=== PATIENT | female | born 1965 | race Caucasian/White ===

== ENCOUNTER 2023-03-25 12:02 | Emergency (ER) | payer BC, SELFPAY ==
[2023-03-25 12:20] VITALS: BP 172/91; PULSE 64; RESP 18; TEMP 36.4; O2SAT 100; BMI 30.3
--- NOTE | 2023-03-25 12:37 | ED.CHESTPAIN ---
HPI - Chest Pain General Chief Complaint: Chest Pain Stated Complaint: Chest pain, shortness of breath Time Seen by Provider: 03/25/23 12:10 History of Present Illness HPI narrative: This 58-year-old female comes in reporting chest discomfort in the midsternal area. She states that this began 2 days ago and is reproducible when bending forward and when taking a deep breath. 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 She denies having any nausea, vomiting, lightheadedness, shortness of breath, diaphoresis, or exercise intolerance. She does not know of any prior heart condition. She states that she did have a stroke 6 years ago and is not taking any medicine to manage that condition. Related Data Home Medications Medication Instructions Recorded Confirmed dupilumab 200 mg/1.14 mL mg subcut 03/25/23 subcutaneous pen injector ([email or web address]) gabapentin 300 mg capsule 600 mg PO BID 03/25/23 03/25/23 lisinopril 20 mg tablet 20 mg PO DAILY 03/25/23 03/25/23 Allergies Allergy/AdvReac Type Severity Reaction Status Date / Time No Known Drug Allergies Allergy Verified 03/25/23 12:20 Review of Systems Status of ROS Reports: 10 or more systems reviewed and unremarkable except as noted in History and below Narrative Constitutional: No fevers, no weight gain or loss. Eyes: No discharge. No vision changes. HENT: No congestion, no sore throat, no ear pain. Cardiovascular: No palpitations. Respiratory: No shortness of breath, no wheezes, no cough. Gastrointestinal: No abdominal pain, no vomiting, no diarrhea. Genitourinary: No dysuria, no hematuria. Musculoskeletal: Normal range of motion. Skin: No rashes, no pruritis. Neurological: No dizziness, weakness, sensory change, speech change. Endo/Heme/Allergies: No bruising or bleeding. No polydipsia. Pysch: no suicidality, no anxiety, no insomnia. All other systems reviewed and are negative. [facility] Social History Smoking Status: Never smoker Do you use any of these nicotine containing products: None How often do you have a drink containing alcohol: 2-3 times a week How many standard drinks containing alcohol do you have on a typical day: 1 or 2 How often do you have six or more drinks on one occasion: Never AUDIT-C Alcohol total score: 3 Non-prescribed substance use: denies use service: Yes Exam Narrative Exam Narrative: Constitutional: Well-developed, well-nourished, no acute distress. HEENT: Normocephalic, atraumatic. Neck: Normal range of motion. Nontender. Supple. Heart: Regular. No murmurs. Normal rate. Intact distal pulses. Lungs: Clear to auscultation. No wheezes, rhonchi, or rales. Chest: No pain when palpating along the sternal border. Distinct pain is reproduced when bending forward or taking a deep breath. Abdomen: Normal bowel sounds. Nontender. No rebound tenderness. Genitalia: Deferred. Back: No midline tenderness. Normal range of motion. Extremities: Normal range of motion. No injury. Skin: Intact. No rash. Warm. No erythema or pallor. Neurologic: No altered sensation. No weakness. Alert and oriented. Psychiatric: No suicidality. No anxiety or depression. No insomnia. Nursing notes and vitals signs are reviewed. Const Vital Signs, click to edit/add: Vital Signs - 24 hr 03/25/23 12:20 Temperature 97.6 F Pulse Rate [Right Pulse Oximeter] 64 Respiratory Rate 18 Blood Pressure [Right Upper Arm] 172/91 H Pulse Oximetry 100 Oxygen Delivery Method Room Air Course Vital Signs Vital signs: Initial Vital Signs Temperature 97.6 F 03/25/23 12:20 Temperature Source Temporal Artery Scan 03/25/23 12:20 Pulse Rate 64 03/25/23 12:20 Respiratory Rate 18 03/25/23 12:20 Blood Pressure 172/91 H 03/25/23 12:20 Blood Pressure Mean 118 H 03/25/23 12:20 Blood Pressure Position Sitting 03/25/23 12:20 Pulse Oximetry 100 03/25/23 12:20 Oxygen Delivery Method Room Air 03/25/23 12:20 Vital Signs Temperature 97.6 F 03/25/23 12:20 Pulse Rate 64 03/25/23 12:20 Respiratory Rate 18 03/25/23 12:20 Blood Pressure 172/91 H 03/25/23 12:20 Pulse Oximetry 100 03/25/23 12:20 Oxygen Delivery Method Room Air 03/25/23 12:20 Temperature 97.6 F 03/25/23 12:20 Pulse Rate 64 03/25/23 12:20 Respiratory Rate 18 03/25/23 12:20 Blood Pressure 172/91 H 03/25/23 12:20 Pulse Oximetry 100 03/25/23 12:20 Oxygen Delivery Method Room Air 03/25/23 12:20 MDM - Chest Pain MDM Narrative Medical decision making narrative: This 58-year-old female comes in reporting pain in her mid sternal area that is reproducible with certain movements and with taking a deep breath. She does not describe any particular injury event but does state that she has been lifting heavy items [place] EKG shows normal sinus rhythm without any ST or T-wave abnormalities. Her troponin returns at 0. Other lab results are also in normal range. This patient's pain is most likely musculoskeletal. I advised activity as tolerated. I did provide a return to work note. Lab Data Labs: Lab Results 03/25/23 03/25/23 Range/Units 12:36 13:00 WBC 4.83 (4.50-11.00) K/uL RBC 3.95 L (4.00-5.20) m/uL Hgb 12.2 (12.0-16.0) gm/dL Hct 36.9 (33.0-51.0) % MCV 93 (80-100) fL MCH 31 (26-34) pg MCHC 33 (32-36) gm/dL RDW Coeff of Filomena 12.1 (11.5-15.5) % Plt Count 185 (140-440) K/uL Neut % (Auto) 49.7 (42.0-72.0) % Lymph % (Auto) 36.6 (20-44) % [place] % (Auto) 8.7 (0.0-11.0) % Eos % (Auto) 4.8 (0.0-7.0) % Baso % (Auto) 0.2 (0.0-3.0) % Neut # (Auto) 2.40 (1.7-7.0) K/uL Lymph # (Auto) 1.77 (0.90-2.90) K/uL [place] # (Auto) 0.40 (0.00-0.90) K/UL Eos # (Auto) 0.23 (0.00-0.50) K/uL Baso # (Auto) 0.01 (0.00-0.30) K/uL Abs Immat Gran (auto) 0.00 (0.00-0.30) K/uL Imm/Tot Granulo (auto) 0.0 % Sodium 139 (135-149) mmol/L Potassium 3.6 (3.6-5.1) mmol/L Chloride 104 (96-114) mmol/L Carbon Dioxide 29 (20-32) mmol/L BUN 14 (7-30) mg/dL Creatinine 0.7 (0.5-1.5) mg/dL Estimated Creat Clear 93.78 Estimated GFR 101 ml/min Glucose 87 (60-115) mg/dL Calcium 8.9 (8.4-10.6) mg/dL POC Troponin I 0.00 L (0.01-0.04) ng/ml ECG Data Attestation: I personally reviewed and interpreted this ECG as follows: Interpretation: Normal sinus rhythm. Rate is 71 beats per minute. There are no ST or T-wave abnormalities. Discharge Plan Discharge Clinical Impression: Acute chest wall pain Patient Disposition: Home, Self-Care Condition: Stable Additional Instructions: Use [id number] medicines as needed or directed. Follow up with MD or return if worsening. Prescriptions: No Action lisinopril 20 mg tablet 20 mg PO DAILY gabapentin 300 mg capsule 600 mg PO BID Dupixent Pen 200 mg/1.14 mL pen injector SUBCUT Patient Comments: [NO ORIGINAL SIG] Follow Up/Referrals: Fide Choudhary PA-C [Primary Care Provider] - Stand Alone Forms: [employer] Info Instructions
[2023-03-25 13:18] LABS: Basophils Absolute Auto 0.01 K/uL (0.00-0.30); Basophils Percent Auto 0.2 % (0.0-3.0); Eosinophils Absolute Auto 0.23 K/uL (0.00-0.50); Eosinophils Percent Auto 4.8 % (0.0-7.0); Hematocrit 36.9 % (33.0-51.0); Hemoglobin* 12.2 gm/dL (12.0-16.0); Lymphocytes Absolute Auto 1.77 K/uL (0.90-2.90); Lymphocytes Percent Auto 36.6 % (20-44); Mean Corpuscular HGB Conc 33 gm/dL (32-36); Mean Corpuscular Hemoglobin 31 pg (26-34); Mean Corpuscular Volume 93 fL (80-100); Monocytes Percent Auto 8.7 % (0.0-11.0); Neutrophils Percent Auto 49.7 % (42.0-72.0); Platelet Count* 185 K/uL (140-440); RDW Coefficient of Variation % 12.1 % (11.5-15.5); Red Blood Count 3.95 m/uL (4.00-5.20); White Blood Count* 4.83 K/uL (4.50-11.00)
[2023-03-25 13:23] LABS: Slide Review Reflex No
[2023-03-25 13:32] LABS: Chloride* 104 mmol/L (96-114); Potassium* 3.6 mmol/L (3.6-5.1); Sodium* 139 mmol/L (135-149)
[2023-03-25 13:35] LABS: Blood Urea Nitrogen* 14 mg/dL (7-30); Carbon Dioxide* 29 mmol/L (20-32); Creatinine* 0.7 mg/dL (0.5-1.5); Est. Creatinine Clearance* 93.78; Estimated Glomerular Filt Rate 101 ml/min
[2023-03-25 13:36] LABS: Calcium* 8.9 mg/dL (8.4-10.6); Glucose* 87 mg/dL (60-115)
== END 2023-03-25 14:08 | disposition home or self-care (01) ==
PROVIDERS: Emergency Provider Emergency Medicine Emergency Medical Services; PCP Physician Assistant Medical
DX: R07.89 Other chest pain (principal)
CPT/HCPCS: 36415; 80048; 84484; 85025; 93005; 99284

== ENCOUNTER 2024-06-26 07:22 | Outpatient (CLI) | payer BC, SELFPAY ==
--- OUTSIDE RECORDS SUMMARY | 2024-06-26 07:25 | XMS_ITS | Continuity of Care Document ---
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 Social History Type Response Date Comment Sourc e This section is an empty social history section. [facility]
--- OUTSIDE RECORDS SUMMARY | 2024-06-26 07:25 | XMS_ITS | Clinical Summary ---
Author Organization [employer] [facility] [employer] Address [place], [place] [address] Care Team Providers Care Wood Gluer Name Role Phone Fide Choudhary Primary Care Provider Allergies Active Allergy Reactions Criticality Noted Date Comments Amoxicillin-Pot Clavulanate Rash 07/16/2021 7Nov21 Rash after augmentin, similar to chronic rash however Hymenoptera Allergenic Extract Anaphylaxis High 11/28/2007 Black Raspberry Flavor Throat Swelling/Closing High 01/24/2023 Fruit and flavoring Kiwi Throat Swelling/Closing High 06/05/2023 throat swelling, foot went numb Nsaids (Non-Steroidal Anti-Inflammatory Drug) Other - Describe In Comment Field 03/28/2016 Patient had bariatric surgery. Should not ever take NSAIDS due to high risk for gastric ulcers. Venom-Wasp Anaphylaxis High 01/28/2023 Medications Medication Sig Dispensed Refills Start Date End Date Status multivitamin (MVI) tabletIndications:S tatus post bariatric surgery Take 1 tablet by mouth once daily. [place]inestones BID 0 7 Active cyclobenzaprine (FLEXERIL) 10 mg tabletIndications:M uscle spasm Take 1 Tablet (10 mg) by mouth 2 times daily if needed for Muscle Spasm. 30 Tablet 1 Active albuterol HFA (ProAir HFA) 90 mcg/actuation inhalerIndications: Cough Inhale 1-2 Puffs by mouth every 6 hours if needed for Shortness of Breath 1st choice. 1 Each 2 Active omeprazole (PRILOSEC) 40 mg Delayed-Release capsuleIndications: Gastroesophageal reflux disease, unspecified whether esophagitis present TAKE ONE CAPSULE BY MOUTH ONE TIME DAILY BEFORE MEALS 90 Capsule 1 2 Active SUMAtriptan (IMITREX) 100 mg tablet take 0.5 - 1 tablet by mouth at onset of headache. may repeat in 2 hours as needed. Max of 2 tablets per 24 hours. Max of 9 days per 30 day 3 Active gabapentin (NEURONTIN) 300 mg capsule Take 600 mg by mouth two times daily. 3 Active clobetasol 0.05% TOPICAL (TEMOVATE) 0.05 % external solutionIndications :Atopic dermatitis, unspecified type Apply 1-2 times daily as needed for itching and rash. May use 1-2 times weekly for maintenance. Use sparingly. Do not use on face, axilla and groin. 50 mL 1 3 Active zolpidem (AMBIEN) 10 mg tabletIndications:I nsomnia, unspecified type Take 1 Tablet (10 mg) by mouth at bedtime if needed for Sleep. 30 Tablet 4 Active trimethoprim-polymy christoph b (POLYTRIM) ophthalmic solutionIndications :Conjunctivitis of left eye, unspecified conjunctivitis type Place 1 Drop into left eye every 4 hours. 10 mL 4 Active EPINEPHrine (EpiPen) 0.3 mg/0.3 mL auto-injectorIndica tions:Bee sting allergy Inject 0.3 mg (1 Pen) intramuscular each time if needed for Allergic Reaction. 2 Each 3 4 Active clobetasol 0.05% TOPICAL (TEMOVATE) 0.05 % external solutionIndications :Atopic dermatitis, unspecified type Apply a thin layer to the affected areas on the trunk and extremities once to twice daily as needed. ( Patient to mix in a 16 ounce jar of CeraVe cream) 50 mL 1 4 Active dupilumab (Dupixent Pen) 300 mg/2 mL subcutaneous PENIndications:Atop ic dermatitis, unspecified type Inject 300mg ( 1 pen ) every 2 weeks 4 mL 11 4 Active polyethylene glycol-electrolyte (GOLYTELY) 236-22.74-6.74 -5.86 gram suspensionIndicatio ns:Screening for colon cancer Drink 2 liters the day before the procedure and 2 liters 6 hours prior to procedure. 4000 mL 4 Active lisinopriL (PRINIVIL; ZESTRIL) 20 mg tabletIndications:H TN (hypertension) Take 1 Tablet (20 mg) by mouth once daily. 90 Tablet 3 4 Active clobetasol 0.05% TOPICAL (TEMOVATE) 0.05 % external solutionIndications :Atopic dermatitis, unspecified type Apply a thin layer to the affected areas on the trunk and extremities once to twice daily as needed 50 mL 1 3 06/04/20 24 Discontinu ed(Reorder (E-cancel not sent)) meloxicam 15 mg tabletIndications:C ostochondral chest pain Take 1 Tablet (15 mg) by mouth once daily. 30 Tablet 3 06/17/20 Discontinu ed(*Patien t states no longer taking) lisinopriL (PRINIVIL; ZESTRIL) 10 mg tabletIndications:H ypertension, unspecified type Take 1 Tablet (10 mg) by mouth once daily. 90 Tablet 3 4 06/17/20 Discontinu ed(*Medica tion adjustment ) oxyCODONE (ROXICODONE) 5 mg immediate release tabletIndications:B union, right Take 1-2 Tablets (5-10 mg) by mouth every 4 hours if needed for Pain. 20 Tablet 4 06/17/20 Discontinu ed(*Patien t states no longer taking) codeine-guaiFENesin 10-100 mg/5 mL liquidIndications:A cute cough Take 5 mL by mouth at bedtime if needed for Cough. Max dose 60 mL per 24 hrs. 60 mL 4 06/17/20 Discontinu ed(*Patien t states no longer taking) benzonatate (TESSALON) 100 mg capsuleIndications: Cough, unspecified type Take 1 Capsule (100 mg) by mouth 3 times daily if needed for Cough. 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 Seasonal allergies 07/03/2010 Unspecified essential hypertension 07/15/2007 Unspecified asthma(493.90) 10/07/2006 Overview (06/11/2011): triggors-cold weather/ Asthma letter 06/11/11 Esophageal reflux 10/07/2006 Dysphagia Encounters Date Type Department Care Team Description 06/24/2024 9:40 AM CDT Ancillary Procedure [facility] [address] [place] [address] Arrived 06/24/2024 Travel 06/21/2024 Travel 06/17/2024 7:30 AM CDT Office Visit [facility] [address] [place] [address] Fide Choudhary PA Preoperative Exam (colonoscopy); Musculoskeletal Problem (L hip - go over MRI results and next steps); Form (Needs note for work) 06/17/2024 Travel 06/15/2024 2:45 PM CDT Nurse/Clinic Staff Only [facility] [address] [place] [address] Immunization/Injection (ALLERGY INJECTIONS ) 06/15/2024 Travel 06/08/2024 Telephone [facility] [address] [facility] [place] [address] Fide Choudhary PA Screening 06/04/2024 2:45 PM CDT Nurse/Clinic Staff Only [facility] [address] [facility] [facility] [address] Immunization/Injection (ALLERGY INJECTIONS ) 06/04/2024 11:30 AM CDT Office Visit [facility] [address] [place] [address] [place] [address] Victoria Quan PA Derm Problem (recheck rash ) 06/04/2024 Travel 06/01/2024 1:15 PM CDT Nurse/Clinic Staff Only [facility] [address] [facility] [address] Immunization/Injection (ALLERGY INJECTIONS ) 06/01/2024 Travel 05/20/2024 Telephone [facility] [address] [facility] [facility] [address] Thierno Tavares MD Prior Authorization (EPINEPHrine (EpiPen) 0.3 mg/0.3 mL auto-injector - PA NOT NEEDED ) 05/18/2024 2:20 PM CDT Office Visit [facility] [address] [facility] [facility] [address] Thierno Tavares MD Follow Up (immunotherapy) 05/18/2024 Travel 05/07/2024 4:15 PM CDT Ancillary Procedure [facility] [address] [facility] [address] 05/07/2024 Travel 05/06/2024 Orders Only [facility] [address] [address] Thierno aTvares MD Refill Request (Venom immunotherapy mix) 04/22/2024 10:45 AM CDT Office Visit [facility] [address] [facility] [address] Salinas Guerra DPM Post-op (Right 10 week post-op , DOS 12/30/23) 04/22/2024 Travel 04/22/2024 Refill [facility] [address] [place] [address] Victoria Quan PA Refill Request (Dupixent Pen) 04/15/2024 10:30 AM CDT Ancillary Procedure [facility] [address] [place] [address] 04/15/2024 9:30 AM CDT Office Visit [facility] [address] [place] [address] Fide Choudhary PA Hip Pain/problem (L hip pain on and off x a few years, but last month its been constant pain. ); Eye Problem (L eye is red and painful. Woke up this morning this way) 04/15/2024 Travel 04/09/2024 3:15 PM CDT Nurse/Clinic Staff Only [facility] [address] [place] [address] Immunization/Injection (ALLERGY INJECTIONS ) 04/09/2024 Telephone [facility] [address] [place] [address] Thierno Tavares MD Refill Request 04/09/2024 Travel from Last 3 Months Immunizations Name Administration Dates Next Due AMB Influenza, IIV4 PF (=>6 mos Flulaval,Fluzone Fluarix)(Flu Clinic Only) 06/01/2020 HepA-HepB (Twinrix) 07/20/2015 Inactivated Polio Vaccine 07/20/2015 Influenza A (H1N1), Inactivated 08/29/2009 Influenza A (H1N1), Inactiva yoselin (Age >=3 Years) 08/29/2009 Influenza, IIV3 (Age 6-35 mos) 06/11/2011 Influenza, IIV3 (Age >=3 years) 06/11/20 11,07/03/2010,06/30/2008,07/16 MENINGOCOCCAL VACCINE 2 VIAL 2MO-55YO (MENVEO) 07/20/2015 Td (Age >=7 Years) 09/09/2004 Td, Preservative Free (age >= 7 Years) 6 Tdap 06/11/2011 Tuberculin (PPD) 07/03/2010 Family History * Patient is adopted Medical History Relation Name Comments Unknown Father Cancer-colon Maternal Grandmother d, age 39 Cancer-colon Mother , age 4 5 Dementia Mother Cancer-breast No Family History Relation Name Status Comments Father Maternal Grandmother Mother Social History Tobacco Use Types Packs/Day Years Used Date Smoking Tobacco: Never Smokeless Tobacco: Never Tobacco Cessation:Counseling Given: Yes Alcohol Use Standard Drinks/Week Comments Yes 0 (1 standard drink = 0.6 oz pur e alcohol) PHQ-2 Answer Date Recorded PHQ-2 TOTAL SCORE 0 10/22/2022 Social Connections Answer Date Recorded Frequency of Communication with Friends and Fami ly 0 12/18/2023 Financial Resource Strain Answer Date R ecorded Difficulty of Paying Living Expenses 3 12/18/2023 Difficulty of Paying Living Expenses Not on file 12/18/2023 Food Insecurity Answer Date Recorded Worried About Running Out of Food in the Last Ye ar 1 12/18/2023 Transportation Needs Answer Date Record ed Lack of Transportation (Medical) 1 12/18/2023 Housing Stability Answer Date Recorded Unable to Pay for Housing in the Last Year 1 12/18/2023 Sex and Gender Information Value Date Recorded Sex Assigned at Female 12/27/2022 10:22 AM CDT Gender Identity Female 12/27/2022 10:22 AM CDT Sexual Orientation Not on file Travel History Travel Start Travel End [place] 05/28/2024 05/31/2024 Obstetrics History Para Term AB IAB SAB Ectopic Multiple Livin g Live Births 1 1 Date Outcome GA Total Labor Labor/2nd/3rd Weight Sex Type Anes PTL Chetna A1 A5 Name Clin Para Last Filed Vital Signs Vital Sign Reading Time Taken Comments Blood Pressure 126/78 06/17/2024 7:28 AM CDT Pulse 68 06/17/2024 7:28 AM CDT Temperature 36.8 ??C (98.2 ??F) 03/03/2024 4:04 PM CD T Respiratory Rate 16 12/30/2023 1:15 PM CDT Oxygen Saturation 100% 05/18/2024 2:12 PM CDT Inhaled Oxygen Concentration - - Weight 91.6 kg (202 lb) 06/17/2024 7:28 AM CDT Height 177.8 cm (5' 10) 12/30/2023 9:54 AM CDT Body Mass Index 28.98 12/30/2023 9:54 AM CDT Plan of Treatment Upcoming Encounters Date Type Department Care Team (Late st Contact Info) Description 06/26/2024 7:45 AM CDT Office Visit [facility] [address] [place] [address] Juvenal Hazel MD [address] [place] [address] 08/03/2024 3:15 PM [employer] Nurse/Clinic Staff Only [facility] [address] [place] [address] 10/22/2024 9:30 AM [employer] Office Visit [facility] [address] [place], [place] [address] Victoria Quan PA [address] [place], [place] [address] [phone] 06/10/2025 9:30 AM CDT Office Visit [facility] [address] [place] [address] Victoria Quan PA [address] [place], [place] [id number] [phone] Health Maintenance Due Date Last Done Comments COVID-19 vaccine series (#1) 1972 HIV for age 15-65 1982 Hepatitis C screening for age 18-79 1985 Zoster (shingles) series for age 50+ (1 of 2) 1986 Tetanus booster 06/11/2021 06/11/2011, 10/10, 09/09/2004 Depression screening for age 12+ 10/22/2023 10/22/2022, 04/08/2020, 04/06/2020, Additional history exists Colonoscopy through age 75 11/03/202311/03, 11/03/2018, 11/03/2018, Additional history exists Mammogram for age 45-75 02/01/2024 02/01/20 23, 11/09/2020, 10/21/2019, Additional history exists Influenza for age 50-64 05/10/2024 06/01/20, 06/11/2011, 07/03/2010, Additional history exists BMI (ht and wt on same day) for age 18+ 12/17/2024 12/18/2023, 03/28/2023, 02/12/2023, Additional history exists Lipids for age 45-75 11/08/2026 11/08/2021, 03/20/2017, 11/26/2012, Additional history exists Tdap Completed 06/11/2011 Pneumococcal series for age 6-64 Aged Out No longer eligible based on patient's age to complete this topic Medical Devices Implanted Type Area Supervisor Corduroy Cutting Device Identifier Shelf Expiration Date Model / Serial / Lot Maxforce Mtp Compression Plate, Petite - [id number] Implanted:Qty: 1 on 12/30/2023 by Salinas Guerra DPM at [facility] Right: Foot [employer] AR-9944P-[id number] / / [id number] Screw Bone 3.0x28mm Compression Headless - [id number] Implanted:Qty: 1 on 12/30/2023 by Salinas Guerra DPM at [facility] Right: Foot [employer] AR-8630-28 / / [id number] Screw Bone 3x16mm Johnie Low Profile Mtp - [id number] Implanted:Qty: 1 on 12/30/2023 by Salinas Guerra DPM at [facility] Right: Foot [employer] AR-9933-16 / / [id number] Screw Bone 3.0x14mm Titnm Shantal Compression Kreulock - [id number] Implanted:Qty: 1 on 12/30/2023 by Salinas Guerra DPM at [facility] Right: Foot [employer] AR-8933VCL- 14 / / [id number] Screw Bone 3.0x16mm Titnm Shantal Compression Kreulock - [id number] Implanted:Qty: 1 on 12/30/2023 by Salinas Guerra DPM at [facility] Right: Foot [employer] AR-8933VCL- 16 / / [id number] Screw Bone 3.0x18mm Titnm Shantal Compression Kreulrivera - [id number] Implanted:Qty: 2 on 12/30/2023 by Salinas Guerra DPM at [facility] Right: Foot [employer] AR-8933VCL- 18 / / Explanted Type Area Supervisor Corduroy Cutting Device Identifier Shelf Expiration Date Model / Serial / Lot Guidewire [id number] - [id number] Explanted:Qty: 1 on 12/30/2023 by Salinas Guerra DPM at [facility] [employer] AR-[id number]- 30 / / [id number] Procedures Procedure Name Priority Date/Time Associated Diagnosis Comments HEMOGLOBIN Routine 06/17/2024 7:59 AM CDT Preop general physical exam BASIC METABOLIC PANEL Routine 06/17/2024 7:59 AM CDT HTN (hypertension) MR HIP LEFT WO Routine 05/07/2024 4:44 PM CDT Hip pain, left XR HIP 1 VIEW W PELVIS LEFT Routine 04/15/2024 10:21 AM CDT Hip pain, left XR MAMMO AURELIA BILAT SCREEN Routine 01/31/2023 3:48 PM CDT Visit for screening mammogram LIPID PANEL W REFLEX MEASURED LDL Routine 11/08/2021 11:27 AM [employer] Screening cholesterol level COLONOSCOPY SCREENING Routine 11/03/2018 12:00 PM [employer] History of colon polyps from Last 3 Months or Most Recently Relevant to Health Maintenance Results * HEMOGLOBIN (06/17/2024 7:59 AM CDT) HEMOGLOBIN 13.2 11.7 - 15.5 g/dL [facility] Blood BLOOD SPECIMEN / Unknown 06/17/2024 7:59 AM CDT 06/17/2024 8:00 AM CDT Fide SALAS HEMATOLOGY [facility] [address] [place] [address], [place] [phone] [facility] [address] [place] [address] * (ABNORMAL) BASIC METABOLIC PANEL (06/17/2024 7:59 AM CDT) [facility] GLUCOSE 93 65 - 99 mg/dL [facility] Comment: ? Fasting reference interval UREA NITROGEN (BUN) 15 7 - 25 mg/dL [facility] CREATININE 0.87 0.50 - 1.03 mg/dL [facility] EGFR 78 > OR = 60 mL/min/1. 73m2 [facility] BUN/CREATININE RATIO SEE NOTE: 6 - 22 (calc) [facility] Comment: ?? Not Reported: BUN and Creatinine are within ?? reference range. ? SODIUM 140 135 - 146 mmol/L [facility] POTASSIUM 4.5 3.5 - 5.3 mmol/L [facility] CHLORIDE 106 98 - 110 mmol/L [facility] CARBON DIOXIDE 29 20 - 32 mmol/L [facility] ELECTROLYTE BALANCE 5(L) 7 - 17 mmol/L (calc) [facility] CALCIUM 9.2 8.6 - 10.4 mg/dL [facility] Blood BLOOD SPECIMEN / Unknown 06/17/2024 7:59 AM CDT 06/17/2024 8:00 AM CDT Fide SALAS CHEMISTRY Performing Organization Address City/[facility]/ZIP Co de Phone Number [facility] [address] [place] [address], [place] [phone] [facility] [address] [place] [address] * MR HIP LEFT WO CONTRAST (05/07/2024 4:44 PM CDT) Anatomical Region Laterality Modality HIPL Magnetic Resonan ce 05/08/2024 11:2 0 AM CDT Impressions 05/08/2024 11:20 AM CDT 1. Mild acetabular over coverage left hip. Possible anterosuperior labral tear. Dictated by Jon Ross MD @ 05/08/2024 11:20:24 AM (Electronically Signed) Narrative 05/08/2024 11:20 AM CDT For Patients: ??As a result of the Cures Act, medical imaging exams and procedure reports are released immediately into your electronic medical record. ??You may view this report before your referring provider. ??If you have questions, please contact your health care provider. EXAM: MRI OF THE LEFT HIP, WITHOUT CONTRAST CLINICAL INDICATION: Hip pain. PRIOR SURGERY: None. COMPARISON PLAIN FILMS: 15 April 2024 COMPARISON CROSS-SECTIONAL IMAGING STUDIES: None. TECHNICAL: Axial, sagittal and coronal PDFS small field of view images of the hip. ??Coronal and axial T1 and PDFS large field of view images of the entire pelvis. ??1.5 Claudine MR scanner. ?? FINDINGS: LEFT HIP: Effusion: No significant joint effusion, synovial hypertrophy or synovitis. Articular Cartilage/Surfaces: Articular surfaces appear smooth without focal chondral defect or subchondral marrow changes. Labrum: Suboptimal assessment due to non arthrogram technique and paucity of fluid. Probable tear of the anterosuperior labrum. Joint Bodies: None seen. Proximal Femoral Morphology: No significant osseous bump. ??Femoral head-neck offset is within normal limits. Acetabular Morphology: No focal or global retroversion. Mild over coverage. Estimated central edge angle 53 degrees.. AVN: Not present. RIGHT HIP: On the large field of view images of the entire pelvis, the contralateral hip joint is maintained. No definite acetabular over coverage. OSSEOUS STRUCTURES: No fracture, marrow edema or marrow replacement process. MUSCULOTENDINOUS STRUCTURES AND BURSAE: Tendons and visualized musculotendinous units are intact. ??No muscle atrophy, or edema to suggest strain changes. ??No trochanteric or iliopsoas bursitis. INTRAPELVIC CONTENTS: No mass, fluid collection or adenopathy. ??No inguinal hernia. ?? NEUROVASCULAR STRUCTURES: No abnormality involving the visualized sacral nerve roots or proximal femoral or proximal sciatic nerves. ??No aneurysmal dilation of the visualized distal aorta or iliac arterial circulation. Procedure Note Jon Ross MD - 05/08/2024 For Patients: As a result of the Cures Act, medical imagingexams and procedure reports are released immediately into your electronicmedical record. You may view this report before your referring provider.If you have questions, please contact your health care provider. EXAM: MRI OF THE LEFT HIP, WITHOUT CONTRAST CLINICAL INDICATION: Hip pain. PRIOR SURGERY: None. COMPARISON PLAIN FILMS: 15 April 2024 COMPARISON CROSS-SECTIONAL IMAGING STUDIES: None. TECHNICAL: Axial, sagittal and coronal PDFS small field of view images of the hip.Coronal and axial T1 and PDFS large field of view images of the entirepelvis. 1.5 Claudine MR scanner. FINDINGS: LEFT HIP: Effusion: No significant joint effusion, synovial hypertrophy orsynovitis. Articular Cartilage/Surfaces: Articular surfaces appear smooth withoutfocal chondral defect or subchondral marrow changes. Labrum: Suboptimal assessment due to non arthrogram technique and paucityof fluid. Probable tear of the anterosuperior labrum. Joint Bodies: None seen. Proximal Femoral Morphology: No significant osseous bump. Femoralhead-neck offset is within normal limits. Acetabular Morphology: No focal or global retroversion. Mild overcoverage. Estimated central edge angle 53 degrees.. AVN: Not present. RIGHT HIP: On the large field of view images of the entire pelvis, the contralateralhip joint is maintained. No definite acetabular over coverage. OSSEOUS STRUCTURES: No fracture, marrow edema or marrow replacement process. MUSCULOTENDINOUS STRUCTURES AND BURSAE: Tendons and visualized musculotendinous units are intact. No muscleatrophy, or edema to suggest strain changes. No trochanteric or iliopsoasbursitis. INTRAPELVIC CONTENTS: No mass, fluid collection or adenopathy. No inguinal hernia. NEUROVASCULAR STRUCTURES: No abnormality involving the visualized sacral nerve roots or proximalfemoral or proximal sciatic nerves. No aneurysmal dilation of thevisualized distal aorta or iliac arterial circulation. IMPRESSION: 1. Mild acetabular over coverage left hip. Possible anterosuperior labraltear. Dictated by Jon Ross MD @ 05/08/2024 11:20:24 AM (Electronically Signed) Fide SALAS MR * XR HIP 1 VIEW W PELVIS LEFT (04/15/2024 10:21 AM CDT) Anatomical Region Laterality Modality HIPS, HIPL, Pelvis Computed Radi ography 04/16/2024 1:39 PM CDT Narrative 04/16/2024 1:39 PM CDT For Patients: ??As a result of the Cures Act, medical imaging exams and procedure reports are released immediately into your electronic medical record. ??You may view this report before your referring provider. ??If you have questions, please contact your health care provider. Indication: Hip pain, left. Technique: One-view pelvis. One-view left hip Comparison: None. Findings: Bones: Alignment is normal. No fractures or bone lesions. No AVN. Joint spaces: Mild left hip arthrosis and minimal right hip arthrosis.. Soft tissues: Unremarkable. Impression: No acute findings. Mild left hip arthrosis. Dictated by Yasir Sánchez MD @ 04/16/2024 1:39:27 PM (Electronically Signed) Procedure Note Yasir Sánchez MD - 04/16/2024 For Patients: As a result of the Cures Act, medical imagingexams and procedure reports are released immediately into your electronicmedical record. You may view this report before your referring provider.If you have questions, please contact your health care provider. Indication: Hip pain, left. Technique: One-view pelvis. One-view left hip Comparison: None. Findings: Bones: Alignment is normal. No fractures or bone lesions. No AVN. Joint spaces: Mild left hip arthrosis and minimal right hip arthrosis.. Soft tissues: Unremarkable. Impression: No acute findings. Mild left hip arthrosis. Dictated by Yasir Sánchez MD @ 04/16/2024 1:39:27 PM (Electronically Signed) [facility] SALAS [facility] * XR MAMMO AURELIA BILAT SCREEN (01/31/2023 3:48 PM CDT) Anatomical Region Laterality Modality BREASTS, Breast Left, Breast Right Bilateral Mammography Impressions 02/01/2023 3:26 PM CDT ??There is no radiographic evidence for malignancy. ??Recommend annual mammograms. MAMMOGRAM ASSESSMENT: ??ACR 1 Negative PATIENTS: You will also receive a letter with your examination results in an easy to read format. ??If you have questions about your results, please contact your referring provider. Narrative 02/01/2023 3:26 PM CDT For Patients: As a result of the Century Cures Act, medical imaging exams and procedure reports are released immediately into your electronic medical record. You may view this report before your referring provider. If you have questions, please contact your health care provider. XR MAMMO AURELIA BILAT SCREEN [[id number]] CLINICAL HISTORY: ??This is an asymptomatic 57 y.o. patient. INDICATION FOR EXAM: Mammogram Screening. TECHNIQUE: CC & MLO views were obtained. ??This study was evaluated with the assistance of Computer-Aided Detection. Breast Tomosynthesis was used in interpretation. COMPARISON FILM: Yes 11/09/20 [facility] 10/21/19 [facility] FINDINGS: ??The breasts have scattered areas of fibroglandular density. There are no dominant masses, suspicious micro calcifications or areas of architectural distortion. Fide SALAS MAMMO * (ABNORMAL) LIPID PANEL W REFLEX MEASURED LDL (11/08/2021 11:27 AM [employer]) CHOLESTEROL,TOTAL 204(H) 100 - 199 mg/dL 11/08/2021 7:09 PM [employer] [facility] TRIGLYCERIDES 103 <150 mg/dL 11/08/2021 7:09 PM [employer] [facility] HDL CHOLESTEROL 87 >40 mg/dL 7:09 PM [employer] [facility] NON-HDL CHOLESTEROL 117 <145 mg/dl 11/08/2021 7:09 PM [facility] CHOL/HDL RATIO 2.34 <4.50 11/08/2021 7:09 PM [employer] [facility] LDL CHOLESTEROL 96 <=130 mg/dL 11/08/2021 7:09 PM [employer] [facility] VLDL CHOLESTEROL 21 <=30 mg/dL 11/08/2021 7:09 PM [employer] [facility] PROVIDER ORDERED STATUS RANDOM 11/08/2021 7:09 PM [employer] [facility] Blood BLOOD SPECIMEN / Unknown Venipuncture / Unknown 11/08/2021 11:27 AM [employer] 11/08/2021 11:38 AM [employer] [facility] [address] [place] [address], * COLONOSCOPY SCREENING (11/03/2018 12:00 PM [employer]) Juvenal Hazel MD GI PROCEDURE ORD from Last 3 Months or Most Recently Relevant to Health Maintenance Advance Directives Documents on File Type Date Recorded Patient Physician Office Nurse Expl anation Healthcare Directive 08/31/2015 2:13 PM A Jolanta CAIN, 07/05/2015 * Full Code (Latest Code Status on File) Date Activated Date Inactivated Comments 12/30/2023 9:34 AM 12/30/2023 4:18 PM Question Answer Comments Code Status Discussion: Reviewed Preferences * Full Code Date Activated Date Inactivated Comments 01/28/2023 11:05 AM 01/28/2023 3:48 PM Question Answer Comments Code Status Discussion: Reviewed Preferences * Full Code Date Activated Date Inactivated Comments 09/24/2018 6:24 AM 09/24/2018 5:35 PM Question Answer Comments Code Status Discussion: Discussed * Full Code Date Activated Date Inactivated Comments 03/26/2016 3:14 PM 03/27/2016 7:08 PM * Full Code Date Activated Date Inactivated Comments 03/26/2016 10:57 AM 03/26/2016 3:14 PM Care Teams Wood Gluer Relationship Specialty Start Date End Date [place] [address] PCP - General Family Practice 08/16/11
--- NOTE | 2024-06-26 09:18 | W.ANESCHARGE ---
Anesthesia Charges Start Date/Time Anesthesia Start Date: 06/26/24 Anesthesia Start Time: 08:44 Stop Date/Time Anesthesia Stop Date: 06/26/24 Anesthesia Stop Time: 09:18
== END 2024-06-26 07:23 | disposition home or self-care (01) ==
LOC: OP CLINIC 07:23
PROVIDERS: PCP Physician Assistant Medical; Visit Provider Internal Medicine Gastroenterology
DX: Z12.11 Encounter for screening for malignant neoplasm of colon (principal); D12.3 Benign neoplasm of transverse colon; Z86.0101 Personal history of adenomatous and serrated colon polyps
CPT/HCPCS: 00811; 45380; 45385; 88305; J2704

== ENCOUNTER 2025-06-08 08:57 | Outpatient (CLI) | payer OTHER, BC, SELFPAY | END 2025-06-08 08:58 | disposition home or self-care (01) | LOC: AMB 06-14 10:34 | PROVIDERS: PCP Physician Assistant Medical; Visit Provider Emergency Medicine Emergency Medical Services | DX: S79.912A Unspecified injury of left hip, initial encounter (principal); S59.912A Unspecified injury of left forearm, initial encounter; W01.0XXA Fall on same level from slipping, tripping and stumbling without subsequent striking against object, initial encounter; Y92.242 Post office as the place of occurrence of the external cause | CPT/HCPCS: A0425; A0427 ==

== ENCOUNTER 2025-06-08 09:30 | Inpatient (IN) | payer OTHER, BC, SELFPAY ==
[2025-06-08] VITALS (19 sets, daily range): BP systolic 130–154; BP diastolic 66–98; PULSE 71–101; RESP 12–20; TEMP 36.6–36.8; O2SAT 91–100; BMI 30.3
--- OUTSIDE RECORDS SUMMARY | 2025-06-08 09:34 | XMS_ITS | Clinical Summary ---
Author Organization [facility] Address [address] , [address] [place] [address] Phone Care Team Providers Care Crib Attendant Name Role Phone Sofia DAVIES, Gloria Brown Conditions or Problems Problem Name Problem Code Onset Date Status Entry Date Provider Comment Standard Description Annotate Primary stabbing headache AND DAILY ZAVALA G44.85 (ICD-10-CM ) 04/06 Active 04/06 Rodney Puri MD Primary stabbing headache Insomnia NOS 696313481 (SNOMED CT) 10/08 Active 10/08 Rodney Puri MD Insomnia Stress at work 308819630 (SNOMED CT) 03/07 Active 03/31 Valarie Hanson PhD Stress at work Primary stabbing headache 849597792 (SNOMED CT) 04/06 Inactive 04/06 Rodney Puri MD Idiopathic stabbing headache Complicated migraine 713493796 (SNOMED CT) 04/06 Active 04/06 Rodney Puri MD Complicated migraine Headache, mixed 75773441 (SNOMED CT) 10/31 Resolved 10/31 Rodney Puri MD Chronic mixed headache syndrome Hx of cerebellar stroke (CVA) 466268266 (SNOMED CT) 04/06 Active 04/06 Rodney Puri MD History of cerebrovascular accident Alteration of awareness, transient 741362066 (SNOMED CT) 02/26 Resolved 02/26 Rodney Puri MD Transient altered mental status MRI, brain, abnormal 245144620 (SNOMED CT) 02/26 Resolved 02/26 Rodney Puri MD Magnetic resonance imaging of brain abnormal Trigeminal neuralgia 97072535 (SNOMED CT) 10/31 Resolved 10/31 Rodney Puri MD Trigeminal neuralgia Unsteady gait 60487157 (SNOMED CT) 04/06 Active 04/06 Rodney Puri MD Unsteady when walking Word finding difficulty 019589737 (SNOMED CT) 04/06 Active 04/06 Rodney Puri MD Word finding difficulty HEADACHE 32184991 (SNOMED CT) 02/26 Resolved 02/26 Keshav Davila MD Headache Headache, mixed 17467448 (SNOMED CT) 10/31 Removed 10/31 Keshav Davila MD Chronic mixed headache syndrome Trigeminal neuralgia 25948349 (SNOMED CT) 10/31 Removed 10/31 Keshav Davila MD Trigeminal neuralgia MRI, brain, abnormal 001466408 (SNOMED CT) 02/26 Removed 02/26 Abe Ac MD Magnetic resonance imaging of brain abnormal HEADACHE 07594228 (SNOMED CT) 02/26 Removed 02/26 Abe Ac MD Headache Slurred speech 385142914 (SNOMED CT) 02/26 Active 02/26 Abe Ac MD Slurred speech Alteration of awareness, transient 426682064 (SNOMED CT) 02/26 Removed 02/26 Abe Ac MD Transient altered mental status Medications Medication Instructions Start Date Stop Date Generic Name ND Provider GABAPENTIN 300 MG CAPS TAKE TWO CAPSULES BY MOUTH TWICE DAILY 02/05 gabapentin [id number] Gloria Moralesucheril PA-C GABAPENTIN 300 MG CAPS Take 2 capsule by mouth three times a day 04/07 gabapentin 57117726739 Gloria Italia Cherucheril PA-C SUMATRIPTAN SUCCINATE 100 MG TABS Take 1/2 tablet by mouth as directed : half tab to 1 tab at onset of headache. May repeat in 2 hour as needed up to 2 tabs per 24 hour. Not to exceed 9 day use per month. 10/31 sumatriptan succinate 66070155291 [facility] RIZATRIPTAN BENZOATE 10 MG TABS take 1 tab at headache onset. may repeat a dose after 2 hours if needed. max: 2 tab per 24 hours. Do not take within 24 hours of any other triptan medication. 04/07 rizatriptan 62445610759 Gloria Italia Sofia AZ-C Magnesium (oxide/AA chelate) (magnesium oxide-mg aa chelate) oxide/AA chelate [facility] riboflavin (vitamin B2) (riboflavin (vitamin b2)) vitamin B2 Gloria [facility] melatonin melatonin Gloria [facility] GABAPENTIN 300 MG CAPS TAKE 2 CAPSULES OR 600 MG BY MOUTH TWICE A DAY 02/18 gabapentin 90047216448 [facility] GABAPENTIN 300 MG CAPS TAKE TWO CAPSULES BY MOUTH TWICE DAILY 02/05 gabapentin 89315832695 Rodney Puri MD LISINOPRIL 10 MG TABS lisinopril 04789516142 [facility] PATADAY 0.7 % SOLN INSTILL ONE DROP INTO BOTH EYES EVERY MORNING* olopatadine 92869202128 [facility]alia [facility] NAPROSYN 500 MG TABS 1 tablet by mouth as directed : 1 tab every 8 hour as needed by mouth with your tryptan. Not to exceed 3 tabs/day, or 9 days use per month 10/08 naproxen 65306260162 Rodney Puri MD GABAPENTIN 100 MG CAPS take 6 capsules twice daily 10/29 gabapentin 15055540738 Rodney Puri MD GABAPENTIN 300 MG CAPS TAKE 2 CAPSULES OR 600 MG BY MOUTH TWICE A DAY 02/18 gabapentin 82454954745 Rodney Puri MD SUMATRIPTAN SUCCINATE 100 MG TABS Take 1/2 tablet by mouth as directed : half tab to 1 tab at onset of headache. May repeat in 2 hour as needed up to 2 tabs per 24 hour. Not to exceed 9 day use per month. 10/31 sumatriptan succinate 48742571056 Rodney Puri MD NORTRIPTYLINE HCL 10 MG CAPS 4 capsule by mouth as directed 40 mg per night for 7 days then decrease by 10 mg every week until off it completely 04/06 nortriptyline 51604189160 Rodney Puri MD NORTRIPTYLINE HCL 10 MG CAPS 10/31 nortriptyline 48288064412 Rodney Puri MD CYCLOBENZAPRINE HCL 10 MG TABS TAKE ONE TABLET BY MOUTH ONE TIME DAILY AT BEDTIME NEEDED FOR MUSCLE SPASM 10/31 cyclobenzaprine 28718787749 Rodney Puri MD DUPIXENT 200 MG/1.14ML SO dupilumab 68458551509 Rodney goldsmith MD GABAPENTIN 100 MG CAPS 100 mg 2 times/day for 3 days; then increase by 100 mg 2 times/day every 3 days until pain controlled or until 600 mg 2 times/day 04/06 gabapentin 50883256804 Rodney Puri MD GABAPENTIN 100 MG CAPS take 6 capsules twice daily 10/29 gabapentin 92539720448 Rodney Puri MD NORTRIPTYLINE HCL 50 MG CAPS take 1 cap (50 mg) by mouth daily at bedtime 10/13 nortriptyline 29762501130 Rodney Puri MD NORTRIPTYLINE HCL 10 MG CAPS 4 capsule by mouth as directed 40 mg per night for 7 days then decrease by 10 mg every week until off it completely 04/06 nortriptyline 40785549395 Rodney Puri MD GABAPENTIN 100 MG CAPS 100 mg 2 times/day for 3 days; then increase by 100 mg 2 times/day every 3 days until pain controlled or until 600 mg 2 times/day 04/06 gabapentin 51045540824 Rodney Puri MD NORTRIPTYLINE HCL 10 MG CAPS 10/31 nortriptyline 92564479889 Rodney Puri MD OMEPRAZOLE 40 MG CPDR omeprazole 38437975707 Rodney Puri MD NORTRIPTYLINE HCL 25 MG CAPS 25 mg Q HS x 1 week, then 50 mg Q HS 09/18 nortriptyline 16583247403 Keshav Davila MD NORTRIPTYLINE HCL 50 MG CAPS take 1 cap (50 mg) by mouth daily at bedtime 10/13 nortriptyline 80098179758 Gloria Black PA-C NORTRIPTYLINE HCL 25 MG CAPS 25 mg Q HS x 1 week, then 50 mg Q HS 09/18 nortriptyline 98753642205 Keshav Davila MD ZOLPIDEM TARTRATE 10 MG TABS Take 1 Tablet (10 mg) by mouth at bedtime if needed for Sleep. 09/10 zolpidem 85835394581 Keshav Davila MD CYCLOBENZAPRINE HCL 10 MG TABS Take 1 Tablet (10 mg) by mouth 2 times daily if needed for Muscle Spasm. 09/10 cyclobenzaprine 16764758667 Keshav Davila MD EPINEPHRINE 0.3 MG/0.3ML SOAJ Use as directed 04/18 epinephrine 81256323650 Keshav Davila MD MULTIVITAMIN TABS 02/26 MULTIPLE VITAMINS-MINERALS Abe Ac MD METHYLPREDNISOLONE 4 MG TBPK Take by mouth as instructed per packaging. 09/14 methylprednisolone 14135432017 Keshav Davila MD aspirin 81 mg tablet,chewable One PO q day 03/22 aspirin 36969413390 Abe Ac MD TRIAMCINOLONE ACETONIDE 0.1 % OINT Apply topically to affected area(s) 2 times daily. 12/30 triamcinolone acetonide 57119299481 Keshav Davila MD FLUTICASONE PROPIONATE 50 MCG/ACT SUSP Inhale 2 Sprays to both nostrils once daily. . 04/18 fluticasone propionate 85272985776 Keshav Davila MD multivitamin Take 1 tablet by mouth once daily. Flinestones BID 09/30 MVI Keshav Davila MD HYDROXYZINE HCL 25 MG TABS Take 1 Tablet (25 mg) by mouth every 6 hours if needed for Itching. 09/14 hydroxyzine hcl 93196038304 Keshav Davila MD CYCLOBENZAPRINE HCL 10 MG TABS 12/25 cyclobenzaprine 44891464068 Abe Ac MD EPINEPHRINE 0.3 MG/0.3ML SOAJ Use as directed epinephrine 57736888105 Keshav Davila MD ZOLPIDEM TARTRATE 10 MG TABS TAKE ONE TABLET BY MOUTH ONE TIME DAILY AT BEDTIME NEEDED zolpidem 76664521194 Keshav Davila MD CYCLOBENZAPRINE HCL 10 MG TABS TAKE ONE TABLET BY MOUTH ONE TIME DAILY AT BEDTIME NEEDED FOR MUSCLE SPASM 10/31 cyclobenzaprine 17052871155 Keshav Davila MD ZOLPIDEM TARTRATE 10 MG TABS Take 1 Tablet (10 mg) by mouth at bedtime if needed for Sleep. 09/10 zolpidem 53839700802 QIEUSER QIEUSER TRIAMCINOLONE ACETONIDE 0.1 % OINT Apply topically to affected area(s) 2 times daily. 12/30 triamcinolone acetonide 15999341760 QIEUSER QIEUSER multivitamin Take 1 tablet by mouth once daily. Flinestones BID 09/30 MVI QIEUSER QIEUSER METHYLPREDNISOLONE 4 MG TBPK Take by mouth as instructed per packaging. 09/14 methylprednisolone 56709753471 QIEUSER QIEUSER HYDROXYZINE HCL 25 MG TABS Take 1 Tablet (25 mg) by mouth every 6 hours if needed for Itching. 09/14 hydroxyzine hcl 82667777306 QIEUSER QIEUSER FLUTICASONE PROPIONATE 50 MCG/ACT SUSP Inhale 2 Sprays to both nostrils once daily. . 04/18 fluticasone propionate 70704465367 QIEUSER QIEUSER EPINEPHRINE 0.3 MG/0.3ML SOAJ Use as directed 04/18 epinephrine 99495883926 QIEUSER QIEUSER CYCLOBENZAPRINE HCL 10 MG TABS Take 1 Tablet (10 mg) by mouth 2 times daily if needed for Muscle Spasm. 09/10 cyclobenzaprine 79294587485 QIEUSER QIEUSER ASPIRIN 81 MG CHEW One PO q day 03/22 ASPIRIN 63596574659 Abe Ac MD MULTIVITAMIN TABS (MULTIPLE VITAMINS-MINERALS) 02/26 MULTIVITAMIN TABS (MULTIPLE VITAMINS-MINERALS) Abe Ac MD CYCLOBENZAPRINE HCL 10 MG TABS 12/25 CYCLOBENZAPRINE HCL 91511622616 Abe Ac MD Medications Administered No information available. 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 Abe correia MD Results Date Name Value Unit Range Flag Description Office Visit: fax SMOK STATUS 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 FALLRSKASSES Done Fall ris k assessment Internal Other: Authorizatio n - OBS [id number] Yes GE use only - for [employer] import when terms are not otherwise specified Internal Other: Verbal Autho rization/Emergency Contact - OBS VERBAL_EMER DONE Verbal au thorization and emergency contact Internal Other: Authorizatio n - OBS [email or web address] Yes Authoriza tion: Release of Information - Authorize [facility] - Payment and Healthcare Operations ROIAUTHOTHER Yes Authoriz ation: Release of Information - Authorize Others/Insurance - Payment and Healthcare Operations HIECONSENT Yes Consent To Release information to the Health Information Exchange (HIE) [email or web address] Yes Authorizat ion: Authorization for [facility] to leave messages, voicemail, send text messages, send emails AUTHRELHCARE Yes Authoriz ation: Release/Retrieval of Information to/from Healthcare Facilities, Pharmacy Benefit Payers and Providers AUTHPRIVPRAC Yes Authoriz ation: Notice of privacy practices AUTHBENEFIT Yes Authoriza tion: Assignment of Benefits and Payment Agreement Office Visit: Office Visit f ax MEDS REVIEW Done Documenta tion of current medications (procedure) Plan of Care Type Date Detail Appointment 11:30 AM Gloria Black PA-C, [address] [place] [address], [address], [place], [address], Pending order Follow up SASHA Pending order Follow up SASHA Pending order MRI-Brain W/O Pending order Patient Instruct ions Pending order Patient Instruct ions Pending order Patient Instruct ions Pending order Follow up Pending order Patient Instruct ions Pending Order exclud ed from report: Pending order Patient Instruct ions Pending Order exclud ed from report: Pending order Patient Instruct ions Pending order Patient Instruct ions Pending order Follow up SASHA Pending order Follow up SASHA Pending Order exclud ed from report: Pending order Physical Therapy Pending order Other Referral Pending order Patient Instruct ions Pending order Patient Instruct ions Pending order Physical Therapy Pending Order exclud ed from report: Pending order Other Referral Pending Order exclud ed from report: Pending order Follow up with N eurologist or SASHA Pending order Patient Instruct ions Pending order Follow up in i pel[place] or telemedicine with provider or SASHA Pending order Neuropsychology Evaluation Pending order Follow up in cli pelon or telemedicine Pending order Patient Instruct ions Pending order MRI-Brain W/WO M S Protocol Pending order Occupational The rapy Pending order Speech Therapy Pending order Follow up in i [place] or telemedicine Pending order Follow up Pending order Follow up SASHA Pending order Follow up SASHA Pending order Vitamin D 25 Hyd merly Pending order Magnesium Serum Pending order Vitamin B2 (Ribo flavin) Pending order ESR (Sedimentati on Rate) Pending order Follow up Pending order Other Test Pending order Patient Instruct ions Pending order Follow up Pending order Other Test Pending order MRA-Head W/O Pending order MRA-Neck W/WO Pending order Anti Cardiolipin Ab - IgA/G/M Pending order Anti Thrombin II I (Factor III Profile) Pending order Basic Metabolic Panel (8) Pending order Beta 2 Glycoprot ein (IgA/G/M) Pending order CBC with Diff/Pl atelet Pending order Comp Metabolic P chandra (14) Pending order Creatinine Serum Pending order Factor II Gene M utation - Prothrombin Pending order Factor V Leiden Mutation Pending order Glucose Fast & 2 hr (2 hr GTT) Pending order Hematocrit Pending order Hemoglobin Blood Count Pending order Lipid Panel with LDL/HDL Ratio Pending order Lupus Anticoagul ant Screen Pending order Platelet Count Pending order Protein C Panel Pending order Protein S Panel Pending order Prothrombin Time INR (PT) Pending order PT & PTT Pending order PTT Activated Pending order Other Test Procedures Code Procedure Name Date Entry Date [id number] MRI-Brain W/O CPT-34409 MRI Brain W/O ORDERS Patient Instructions ORDERS Patient Instructions ORDERS Patient Instructions ORDERS Follow up [facility]-[id number] Documentation of current medicatio ns ORDERS Patient Instructions ORDERS Patient Instructions ORDERS Follow up SASHA ORDERS Patient Instructions ORDERS Patient Instructions [facility]-[id number] Documentation of current medicatio ns ORDERS Physical Therapy [id number] Other Referral ORDERS Follow up with Neurologist or SASHA ORDERS Patient Instructions ORDERS Follow up in clinic or telemedicine with provider or SASHA ORDERS Neuropsychology Evaluation 2 CPT-46822 Npsy Interview w/Provider - 1st hour 2022 CPT-36336 Npsy Interp/Rpt by Provider - 1st hour 01/03/29 CPT-78575 Npsy Interp/Rpt by Provider - 2 hours 11/12/28 CPT-31283 Npsy Test by Tech (2+ Tests) - 1st 30 min CPT-10008 Npsy Test by Tech (2+ Tests) - 2.5 hours ORDERS Patient Instructions [facility]-[id number] Documentation of current medicatio ns ORDERS Follow up in clinic or telemedicine 10/31 CPT-I3686S ProHance Gadolinium- based MR Contrast - 20 ml vial CPT-95114 MRI Brain W/WO CPT-A5565O ProHance Gadolinium- based MR Contrast - 20 ml vial [id number] MRI-Brain W/WO MS Protocol 2 ORDERS Speech Therapy ORDERS Occupational Therapy ORDERS Follow up in clinic or telemedicine 07/11 [facility]-[id number] Documentation of current medicatio ns ORDERS Follow up [facility]-[id number] Documentation of current medicatio ns ORDERS Follow up SASHA ORDERS Follow up SASHA ORDERS Vitamin D 25 Hydroxy ORDERS Magnesium Serum ORDERS Vitamin B2 (Riboflavin) 2020 ORDERS ESR (Sedimentation Rate) 09/20/21 ORDERS Follow up ORDERS Follow up ORDERS Patient Instructions ORDERS Other Test CPT-40037 EEG EXTENDED (<= 1 HOUR) (END) ORDERS Other Test CPT-P6178C MultiHance Gadoliniu m-based MR Contrast - 15 ml vial CPT-08233 MRA Neck W/WO CPT-3100F PQRS Stenosis Measurement 20 23/02/29 CPT-20147 MRA Head W/O [id number] MRA-Neck W/WO [id number] MRA-Head W/O ORDERS Other Test ORDERS Platelet Count ORDERS Protein C Panel ORDERS Protein S Panel ORDERS Prothrombin Time INR (PT) 24/02/20 ORDERS PT & PTT ORDERS PTT Activated ORDERS CBC with Diff/Platelet 02/26 ORDERS Comp Metabolic Panel (14) 20 24/02/20 ORDERS Creatinine Serum ORDERS Basic Metabolic Panel (8) 20 24/02/20 ORDERS Anti Cardiolipin Ab - IgA/G/M ORDERS Anti Thrombin III (Factor III Profile) 20 24/02/20 ORDERS Beta 2 Glycoprotein (IgA/G/M) ORDERS Factor II Gene Mutation - Prothrombin 201 03/14/20 ORDERS Factor V Leiden Mutation 201 03/14/20 ORDERS Glucose Fast & 2hr (2 hr GTT) ORDERS Hematocrit ORDERS Hemoglobin Blood Count 02/26 ORDERS Lipid Panel with LDL/HDL Ratio ORDERS Lupus Anticoagulant Screen 2 Vital Signs Date Name Value Unit Description Height 69.02 [in_us] height E&M Heart Rate 68 /min pulse rate Weight Measured 190 [lb_av] weight E& M Weight Measured 190 [lb_av] weight E& M BMI (Body Mass Index) 29.39 kg/m2 Bod y Mass Index (Ratio) Body Temperature 35.72 [degF] temperat ure E&M BP Diastolic 90 mm[Hg] blood pressu re, diastolic BP Systolic 140 mm[Hg] blood pressur e, systolic Respiratory Rate 12 /min respirat ory rate E&M Weight Measured 90.266 kg weight in kilograms E&M Immunizations No information available. Advance Directives No information available.
--- OUTSIDE RECORDS SUMMARY | 2025-06-08 09:35 | XMS_ITS | Clinical Summary ---
Author Organization [facility] Address [address] [place] [id number] Care Team Providers Care Lab Specialist Name Role Phone Fide Choudhary Primary Care [...] gastric ulcers. Venom-Wasp Anaphylaxis High 01/28/2023 Medications multivitamin (MVI) tabletIndication s:Status post bariatric surgery Take 1 tablet by mouth once daily. [place] BID 0 10/01/19 17 Active SUMAtriptan (IMITREX) 100 mg tablet take 0.5 - 1 tablet by mouth at onset of headache. may repeat in 2 hours as needed. Max of 2 tablets per 24 hours. Max of 9 days per 30 day 11/02/19 23 Active gabapentin (NEURONTIN) 300 mg capsule Take 600 mg by mouth two times daily. 02/19/20 23 Active clobetasol 0.05% TOPICAL (TEMOVATE) 0.05 % external solutionIndicati ons:Atopic dermatitis, unspecified type Apply 1-2 times daily as needed for itching and rash. May use 1-2 times weekly for maintenance. Use sparingly. Do not use on face, axilla and groin. 50 mL 1 06/05/20 23 Active zolpidem (AMBIEN) 10 mg tabletIndication s:Insomnia, unspecified type Take 1 Tablet (10 mg) by mouth at bedtime if needed for Sleep. 30 Tablet 12/18/19 24 Active cyclobenzaprine (FLEXERIL) 10 mg tabletIndication s:Muscle spasm Take 1 Tablet (10 mg) by mouth 2 times daily if needed for Muscle Spasm. 30 Tablet 10/09/19 25 Active lisinopriL (PRINIVIL; ZESTRIL) 20 mg tabletIndication s:HTN (hypertension) Take 1 Tablet (20 mg) by mouth once daily. 90 Tablet 3 10/09/19 25 Active omeprazole 40 mg Delayed-Release capsuleIndicatio ns:Gastroesophag eal reflux disease, unspecified whether esophagitis present Take 1 Capsule (40 mg) by mouth once daily before a meal. 90 Capsule 3 12/10/19 25 Active pramipexole 0.125 mg tabletIndication s:Leg cramps Take 1-2 Tablets (0.125-0.25 mg) by mouth at bedtime. Take 0.125mg (1 tab) by mouth 2-3 hours before bedtime 180 Tablet 12/16/19 25 Active clobetasol 0.05% TOPICAL 0.05 % external solutionIndicati ons:Atopic dermatitis, unspecified type Apply a thin layer to the affected areas on the trunk and extremities once to twice daily as needed. ( Patient to mix in a 16 ounce jar of CeraVe cream) 50 mL 1 12/18/19 25 Active dupilumab (Dupixent Pen) 300 mg/2 mL subcutaneous PENIndications:A topic dermatitis, unspecified type Inject 300mg ( 1 pen ) every 2 weeks 4 mL 11 12/18/19 25 Active cephalexin 500 mg tabletIndication s:Prophylactic antibiotic Take 4 tablets (2,000 mg total) by mouth 30-60 minutes prior to scheduled procedure on 01/06/25. For infection prevention. 4 Tablet 12/30/19 25 Active albuterol HFA 90 mcg/actuation inhalerIndicatio ns:Subacute cough,Intermitte nt asthma with acute exacerbation, unspecified asthma severity (HC) Inhale 1-2 Puffs by mouth every 4 hours if needed for Shortness Of Breath or Wheezing. 1 Each 02/17/20 25 Active EPINEPHrine (EpiPen) 0.3 mg/0.3 mL auto-injectorInd ications:Bee sting allergy Inject 0.3 mg (1 Pen) intramuscular each time if needed for Allergic Reaction. 2 Each 3 05/17/20 25 Active EPINEPHrine (EpiPen) 0.3 mg/0.3 mL auto-injectorInd ications:Bee sting allergy Inject 0.3 mg (1 Pen) intramuscular each time if needed for Allergic Reaction. 2 Each 3 05/18/20 24 025 Discontin ued(Reord er (E-cancel not sent)) Active Problems Problem Noted Date Diagnosed Date Cervical cancer screening 12/29/2024 Overview (12/29/2024): 12/2024 UNS/HPV negative. Plan: Pap/HPV due 12/2025. 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 Achlorhydria 03/28/2016 Vitamin [...] Encounters Date Type Department Care Team Description 05/17/2025 2:40 PM CDT Office Visit [facility] [address] [place] [address] Thierno Tavares MD Allergies (Annual immunotherapy follow up ) 05/17/2025 Travel 05/11/2025 4:30 PM CDT Ancillary Procedure [address] [facility] [place] [address] 05/11/2025 4:15 PM CDT Office Visit [place] [address] [facility] [address] Salinas Guerra DPM Follow Up (Left final surgical discussion, DOS 10/11/25) 05/11/2025 Travel 05/05/2025 Telephone [facility] [address] [facility] [address] Salinas Guerra DPM Surgery Scheduled (10/11) 05/03/2025 3:00 PM CDT Nurse/Clinic Staff Only [address] [place] [address] Immunization/Injectio n (ALLERGY INJECTIONS ) 05/03/2025 Travel 04/28/2025 Travel 04/21/2025 Orders Only [facility] Scanner 1 scan: (1-Ord) [facility], BRAIN W/O, 04/21/2025 04/13/2025 9:50 AM CDT Office [place] [address] [place] [address] Fide Choudhary PA Derm Problem (Wart tx) 04/13/2025 Travel 04/05/2025 7:50 AM CDT Office Visit [address] [place] [address] Fide Choudhary PA Derm Problem (Wart tx) 04/05/2025 Travel 03/17/2025 11:50 AM CDT Office Visit [facility] [address] [place] [address] Fide Choudhary PA nailbed (Black lines on nail beds); Derm Problem (Wart? on foot - painful / sting coming from area where she had a biopsy and stitches) 03/17/2025 Travel from Last 3 Months Immunizations Immunization Administration Dates Next Due AMB Influenza, IIV4 [...] 0 10/22/2022 Social Connections Answer Date Recorded Do you often feel lonely or isolated from those around you? 0 12/30/2024 Financial Resource Strain Answer Date R ecorded Difficulty of Paying Living Expenses 3 12/30/2024 Difficulty of Paying Living Expenses Not on file 12/30/2024 Food Insecurity Answer Date Recorded Do you worry your food will run out before you are able to buy more? 1 12/30/2024 Transportation Needs Answer Date Record ed Does lack of transportation keep you from medica l appointments? 1 12/30/2024 Does lack of transportation keep you from work, meetings or getting things that you need? 1 12/30/2024 Housing Stability Answer Date Recorded What is your housing situation today? 1 12/30/2024 Utilities Answer Date Recorded Do you have trouble paying f or utilities (for example, heat, electricity, water, phone)? 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 Not on file Not on file Not on allie e Obstetrics History Para Term AB IAB SAB Ectopic Multiple Livin g Live Births 1 1 0 0 0 0 0 0 Date Outcome GA Total Labor Labor/2nd/3rd Weight Sex Type Anes PTL Chetna A1 A5 Name Clin Para Last Filed Vital Signs Vital Sign Reading Time Taken Comments Blood Pressure 113/73 05/17/2025 2:30 PM CDT tow er Pulse 84 05/11/2025 4:11 PM CDT Temperature 36.7 C (98 F) 02/15/2025 7:12 AM CDT Respiratory Rate 16 12/30/2023 1:15 PM CDT Oxygen Saturation 99% 05/11/2025 4:11 PM CDT Inhaled Oxygen Concentration - - Weight 92.5 kg (203 lb 14.4 oz) 04/13/2025 9:52 AM CDT Height 176.5 cm (5' 9.49) 12/09/2024 1 0:24 AM CDT Body Mass Index 29.69 12/09/2024 10:24 AM CDT Plan of Treatment Upcoming Encounters Date Type Department Care Team (Late st Contact Info) Description 06/21/2025 3:30 PM CDT Nurse/Clinic Staff Only [facility] [address] [facility] [place] [address] 08/11/2025 11:00 AM MICROMATIC HONE OPERATOR Office Visit [facility] [address] [place] [address] Michaela Atkinson MD [address] [facility] [address] [place] [address] 09/29/2025 10:30 AM MICROMATIC HONE OPERATOR Office Visit [facility] [address] [place] [address] Fide Choudhary PA [address] [place] [address] 10/11/2025 7:00 AM MICROMATIC HONE OPERATOR Office Visit [facility] at [address] [address] Salinas Guerra DPM [address] [place] [address] 10/13/2025 10:00 AM MICROMATIC HONE OPERATOR Office Visit [facility] [address] [facility] [place] [address] Salinas Guerra DPM [address] [place] [address] 10/27/2025 10:00 AM MICROMATIC HONE OPERATOR Office Visit [facility] [address] [place] [address] Salinas Guerra DPM [address] [place] [address] 11/17/2025 10:00 AM CDT Office Visit [facility] [address] [place] [address] Salinas Guerra DPM [address] [place] [address] 12/20/2025 11:10 AM CDT Office Visit [facility] [address] [place] [address] Victoria Quan PA [address] [place] [address] Health Maintenance Due Date Last Done Comments COVID-19 vaccine series (#1) 1972 HIV for age 15-65 1982 Hepatitis C screening for ag e 18-79 1985 Zoster (shingles) series for age 50+ (1 of 2) 1986 Hepatitis B series for 19+ ( 2 of 3 - Hep B Twinrix 3-dose series) 08/17/2015 07/20/2015 Pneumococcal series for age 50+ (1 of 1 - PCV) 2017 Tetanus booster 06/11/2021 06/11/2011, 10/10, 09/09/2004 Depression screening for age 12+ 10/22/2023 10/22/2022, 04/08/2020, 04/06/2020, Additional history exists Influenza Vaccine (#1) 2025 0, 06/11/2011, 06/11/2011, Additional history exists Mammogram for age 45-75 06/24/2025 06/24/20 24, 01/31/2023, 11/09/2020, Additional history exists BMI (ht and wt on same day) for age 18+ 12/09/2025 12/09/2024, 09/16/2024, 12/18/2023, Additional history exists Pap test for age 21-65 12/09/2025 , 01/17/2016, 09/07/2010, Additional history exists Lipids for age 45-75 11/08/2026 11/08/2021, 03/20/2017, 11/26/2012, Additional history exists Colonoscopy through age 75 06/26/202906/26, 06/26/2024, 06/26/2024, Additional history exists RSV vaccine for adults or (1 - 1-dose 75+ series) 2042 Medical Devices Implanted Type Area Phone Counselor Device Identifier Shelf Expiration Date Model / Serial / Lot Maxforce Mtp Compression Plate, Petite - [id number] Implanted:Qty: 1 on 12/30/2023 by Salinas Guerra DPM at [facility] Right: Foot [employer] AR-9944P-[id number] / / [id number] Screw Bone 3.0x28mm Compression Headless - [id number] Implanted:Qty: 1 on 12/30/2023 by Salinas Guerra DPM at [facility] Right: Foot [employer] AR-8630-28 / / [id number] Screw Bone 3x16mm Johnie Low Profile Mtp - [id number] Implanted:Qty: 1 on 12/30/2023 by Salinas Guerra DPM at [facility] Right: Foot [employer] AR-9933-16 / / [id number] Screw Bone 3.0x14mm Titnm Shantal Compression Kreulock - [id number] Implanted:Qty: 1 on 12/30/2023 by Salinas Guerra DPM at [facility] Right: Foot [employer] AR-8933VCL- 14 / / [id number] Screw Bone 3.0x16mm Titnm Shantal Compression Kreulock - [id number] Implanted:Qty: 1 on 12/30/2023 by Salinas Guerra DPM at [facility] Right: Foot [employer] AR-8933VCL- 16 / / [id number] Screw Bone 3.0x18mm Titnm Shantal Compression Kreulock - [id number] Implanted:Qty: 2 on 12/30/2023 by Salinas Guerra DPM at [facility] Right: Foot [employer] AR-8933VCL- 18 / / Explanted Type Area Phone Counselor Device Identifier Shelf Expiration Date Model / Serial / Lot Guidewire [id number] - [id number] Explanted:Qty: 1 on 12/30/2023 by Salinas Guerra DPM at [facility] [employer] [facility] [id number]- 30 / / [id number] Procedures Procedure Name Priority Date/Time Associated Diagnosis Comments XR FOOT 3 VIEWS LEFT Routine 05/11/2025 5:08 PM CDT Tailor's bunion of left foot SCAN-MRI INTERPRETATION 04/21/2025 12:00 AM CDT HPV HIGH RISK Routine 12/09/2024 11:28 AM CDT Screening for cervical cancer COLONOSCOPY SCREENING Routine 06/26/2024 12:00 AM CDT History of colon polyps Polyp of colon, unspecified part of colon, unspecified type XR MAMMO AURELIA BILAT SCREEN Routine 06/24/2024 9:49 AM CDT Visit for screening mammogram LIPID PANEL W REFLEX MEASURED LDL Routine 11/08/2021 11:27 AM MICROMATIC HONE OPERATOR Screening cholesterol level from Last 3 Months or Most Recently Relevant to Health Maintenance Results * XR FOOT 3 VIEWS LEFT (05/11/2025 5:08 PM CDT) Anatomical Region Laterality Modality FEET, FOOT L Computed Radiogr aphy 05/12/2025 11:4 0 AM CDT Narrative 05/12/2025 11:40 AM CDT For Patients: As a result of the Century Cures Act, medical imaging exams and procedure reports are released immediately into your electronic medical record. You may view this report before your referring provider. If you have questions, please contact your health care provider. INDICATION: Tailor`s bunion of the foot. TECHNIQUE: Three standing views of the left foot. FINDINGS: Moderate bunionette deformity. Mild pes cavus. Plantar and Achilles heel spurs. Otherwise normal. Dictated by Riky Parra MD @ 05/12/2025 11:40:20 AM (Electronically Signed) Procedure Note Riky Parra MD - 05/12/2025 For Patients: As a result of the Cures Act, medical imagingexams and procedure reports are released immediately into your electronicmedical record. You may view this report before your referring provider.If you have questions, please contact your health care provider. INDICATION: Tailor`s bunion of the foot. TECHNIQUE: Three standing views of the left foot. FINDINGS: Moderate bunionette deformity. Mild pes cavus. Plantar and Achilles heelspurs. Otherwise normal. Dictated by Riky Parra MD @ 05/12/2025 11:40:20 AM (Electronically Signed) us Salinas Guerra DPM GENERAL IMAGING Final Res ult * SCAN-MRI INTERPRETATION (04/21/2025 12:00 AM CDT) Anatomical Region Laterality Modality Other us Scanner OTHER Final Result * HPV HIGH RISK (12/09/2024 11:28 AM CDT) TYPE 16 Negative Negative 12/12/2024 3:09 PM CDT [facility] TYPE 18 Negative Negative 12/12/2024 3:09 PM CDT [facility] OTHER HIGH RISK TYPES Negative Negative 12/12/2024 3:09 PM CDT [facility] Other (Cervical) Non-Blood / Unknown 12/09/2024 11:28 AM CDT 12/10/2024 9:24 AM CDT Narrative [facility] - 12/12/2024 3:09 PM CDT HPV types 16, 18, 31, 33, 35, 39, 45, 51, 52, 56, 58, 59, 66 and 68 DNA were undetectable or below the pre-set threshold. Methodology: Naomi Silvestre 4800 HPV Test us Fide SALAS MICROBIOLOGY Final R esult [facility] [address] [place] [address], [place] * COLONOSCOPY SCREENING (06/26/2024 12:00 AM CDT) us Fide SALAS GI PROCEDURE ORD Final Result * XR MAMMO AURELIA BILAT SCREEN (06/24/2024 9:49 AM CDT) Anatomical Region Laterality Modality BREASTS, Breast Left, Breast Right Bilateral Mammography Impressions 06/26/2024 3:09 PM CDT There is no radiographic evidence for malignancy. Recommend annual mammograms. MAMMOGRAM ASSESSMENT: ACR 1 Negative PATIENTS: You will also receive a letter with your examination results in an easy to read format. If you have questions about your results, please contact your referring provider. Narrative 06/26/2024 3:09 PM CDT For Patients: As a result of the Cures Act, medical imaging exams and procedure reports are released immediately into your electronic medical record. You may view this report before your referring provider. If you have questions, please contact your health care provider. XR MAMMO AURELIA BILAT SCREEN [[id number]] CLINICAL HISTORY: This is an asymptomatic 59 y.o. patient. INDICATION FOR EXAM: Mammogram Screening. TECHNIQUE: CC & MLO views were obtained. This study was evaluated with the assistance of Computer-Aided Detection. Breast Tomosynthesis was used in interpretation. COMPARISON FILM: Yes [facility] FINDINGS: There are scattered areas of fibroglandular density. There are no dominant masses, suspicious micro calcifications or areas of architectural distortion. us Fide SALAS MAMMO Final R esult * (ABNORMAL) LIPID PANEL W REFLEX MEASURED LDL (11/08/2021 11:27 AM MICROMATIC HONE OPERATOR) CHOLESTEROL,TOTAL 204(H) 100 - 199 mg/dL 11/08/2021 7:09 PM MICROMATIC HONE OPERATOR [facility] TRIGLYCERIDES 103 <150 mg/dL 11/08/2021 7:09 PM MICROMATIC HONE OPERATOR [facility] HDL CHOLESTEROL 87 >40 mg/dL 7:09 PM MICROMATIC HONE OPERATOR [facility] NON-HDL CHOLESTEROL 117 <145 mg/dl 11/08/2021 7:09 PM MICROMATIC HONE OPERATOR [facility] CHOL/HDL RATIO 2.34 <4.50 11/08/2021 7:09 PM MICROMATIC HONE OPERATOR [facility] LDL CHOLESTEROL 96 <=130 mg/dL 11/08/2021 7:09 PM MICROMATIC HONE OPERATOR [facility] VLDL CHOLESTEROL 21 <=30 mg/dL 11/08/2021 7:09 PM MICROMATIC HONE OPERATOR [facility] PROVIDER ORDERED STATUS RANDOM 11/08/2021 7:09 PM MICROMATIC HONE OPERATOR [facility] Blood BLOOD SPECIMEN / Unknown Venipuncture / Unknown 11/08/2021 11:27 AM MICROMATIC HONE OPERATOR 11/08/2021 11:38 AM MICROMATIC HONE OPERATOR us Fide SALAS CHEMISTRY Final R esult [facility] [address] [place] [address], from Last 3 Months or Most Recently Relevant to Health Maintenance Insurance [facility] [employer] [id number] SAENZ [id number] [employer] [id number] [place]Z [id number] OWCP * Guarantor: KANCHAN HOROWITZ Account Type Relation to Patient Date of Phone Billing Address [facility] [facility] 09/19/10 [id number] [place] [address] * Guarantor: KAILYN AQUINO Account Type Relation to Patient Date of Phone Billing Address Personal/Family 1965 [address] [place] [id number] * Guarantor: JASBIR GORMAN DS & BATS ONLY Account Type Relation to Patient Date of Phone Billing Address [facility] [address] [place] [address] Advance Directives Documents on File Type Date 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
--- NOTE | 2025-06-08 09:44 | CRLHL7_ITS ---
For Patients: As a result of the Cures Act, medical imaging exams and procedure reports are released immediately into your electronic medical record. You may view this report before your referring provider. If you have questions, please contact your health care provider. INDICATION: Posttraumatic pain, not otherwise described. COMPARISON: None available. TECHNIQUE: Three views of the left hand. FINDINGS: Mineralization: Normal. Alignment: Normal. Bones and Joints: No fracture is identified. There is a small well corticated focus of ossification adjacent to the dorsal base of the left 2nd distal phalanx on the oblique view, not considered to be clinically significant given its sclerotic borders. Similar findings associated with the interphalangeal joint of the thumb as demonstrated on the PA view. Advanced osteoarthrosis of the 1st carpometacarpal joint is noted incidentally. Soft Tissues: Unremarkable. IMPRESSION: No acute traumatic injury is identified. Incidental findings as above. Dictated by Olu Becerra MD @ 06/08/2025 10:58:54 AM (Electronically Signed)
--- NOTE | 2025-06-08 09:44 | CRLHL7_ITS ---
For Patients: As a result of the Century Cures Act, medical imaging exams and procedure reports are released immediately into your electronic medical record. You may view this report before your referring provider. If you have questions, please contact your health care provider. Indication: Injury and pain Technique: Left wrist 3 view Comparison: None Findings: Bones: Alignment is normal. No fractures or bone lesions. Joint spaces: Narrowing with hypertrophic spurring at the 1st carpometacarpal joint. Soft tissues: Unremarkable. Impression: No sign of acute injury in the left wrist. Dictated by Ciaran Quinones MD @ 06/08/2025 10:51:00 AM (Electronically Signed)
--- NOTE | 2025-06-08 09:44 | CRLHL7_ITS ---
For Patients: As a result of the Cures Act, medical imaging exams and procedure reports are released immediately into your electronic medical record. You may view this report before your referring provider. If you have questions, please contact your health care provider. INDICATION: Fall. Pain, not otherwise described. COMPARISON: None available. TECHNIQUE: Three views of the left elbow. FINDINGS: Mineralization: Normal. Alignment: Normal. Bones and Joints: No fracture is identified. Soft Tissues: No joint effusion or significant periarticular soft tissue swelling. IMPRESSION: No acute traumatic injury is identified. Dictated by Olu Becerra MD @ 06/08/2025 10:59:53 AM (Electronically Signed)
--- NOTE | 2025-06-08 09:44 | CRLHL7_ITS ---
For Patients: As a result of the Century Cures Act, medical imaging exams and procedure reports are released immediately into your electronic medical record. You may view this report before your referring provider. If you have questions, please contact your health care provider. Indication: Fall, pain Technique: Pelvis and left hip 3 views Comparison: 04/15/2024 Findings: Ovoid artifacts overlie the right hip. Displaced fracture of the left femoral neck. The fracture appears to be sub occipital. No involvement of the trochanters. Some rotation noted involving the femoral diaphysis in relation to the femoral head. Impression: Displaced left femoral neck fracture. Dictated by Ciaran Quinones MD @ 06/08/2025 10:53:36 AM (Electronically Signed)
[2025-06-08] MEDS: MORPHINE 4 MG/ML INJ IVP (09:45)
[2025-06-08] MEDS: ONDANSETRON 2 MG/ML inj 4 MG IVP (09:45)
--- NOTE | 2025-06-08 09:45 | ED_ITS ---
HPI - General Adult General Time Seen by Provider: 09:45 Date Seen: 06/08/25 Chief complaint: Hip Injury/Pain Stated complaint: Fall, hip pain Time Seen by Provider: 06/08/25 09:31 Source: patient, EMS and RN notes reviewed Mode of arrival: EMS Limitations: no limitations History of Present Illness HPI narrative: This 54-year-old female is brought in by ambulance after a fall at work. 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 She started back pedaling and ended up falling on the left hip. She states her left arm hurts from the elbow down into the hand, her left hip hurts, she cannot straighten it. She denies any numbness tingling anywhere. She did not hit her head, has no neck or back pain, no loss of consciousness. The fall was a result of losing her balance after going down a curb. She just misstepped after going down the curb. She denies any chest pain, no difficulty breathing, no abdominal pain. She was given intranasal fentanyl by EMS with out adequate control of her pain, they were unable to establish an IV. Patient states she has had multiple surgeries with out any complication. Her marifer gical history listed in our chart is history of bunionectomy, panniculectomy, Caesarean, strabismus, hysterectomy, history of gastric sleeve, Lasik both eyes, cholecystectomy. She has a history of adenomatous polyps, last colonoscopy 2023 with a 5 year interval recommended. In her [facility] chart, she has listed hypertension, atopic dermatitis, atypical nevi, vitamin-D deficiency, vitamin B12 deficiency, esophageal reflux and dysphagia, K-Chlor Hydrea, osteochondroma of tibia, seasonal allergies, Hymenoptera allergy, asthma Related Data Home Medications ?Medication ?Instructions ?Recorded ?Confirmed gabapentin 300 mg capsule 600 mg PO BID 03/25/2306/08 lisinopril 20 mg tablet 20 mg PO HS 03/25/23 5 albuterol sulfate 90 mcg/actuation 1 - 2 puff inhalati on Q4H PRN 06/08/25 06/08/25 aerosol inhaler wheezing dupilumab 300 mg/2 mL subcutaneous 300 mg subcut Q14D 06/08/25 06/08/25 pen injector ([employer]) epinephrine 0.3 mg/0.3 mL 0.3 mg IM .each time PRN all ergies 06/08/25 06/08/25 injection, auto-injector omeprazole 40 mg capsule,delayed 40 mg PO DAILY PRN 06/08/25 release potassium chloride 10 mEq 10 meq PO DAILY 06/08/25 tablet,extended release pramipexole 0.125 mg tablet 0.125 - 0.25 mg PO HS PRN 06/08/25 06/08/25 rizatriptan 10 mg tablet 10 mg PO Q2H PRN 06/08/25 Allergies Allergy/AdvReac Type Severity Reaction Status Date / Time amoxicillin (From Augmentin) Allergy Verified 06/08/25 09:42 bee venom protein (honey bee) Allergy Verified 06/08/25 09:42 clavulanic acid (From Allergy Verified 06/08/25 09:42 Augmentin) kiwi Allergy Verified 06/08/25 09:42 venom-wasp protein Allergy Verified 06/08/25 09:42 black raspberry flavor Allergy Uncoded 06/30/24 13:50 Review of Systems Status of ROS: Reports: 6 or more systems reviewed and unremarkable except as noted in History and below [facility] Medical History (Updated 06/08/25 @ 16:40 by Audrey Lazo MD) Asthma ?J45.909 - Unspecified asthma, uncomplicated (ICD-10) Atopic dermatitis ?L20.9 - Atopic dermatitis, unspecified (ICD-10) Hypertension ?I10 - Essential (primary) hypertension (ICD-10) Surgical History History of bunionectomy (11/2023) ?Z98.890 - Other specified postprocedural states (ICD-10) S/P panniculectomy (~2016) ?Z98.890 - Other specified postprocedural states (ICD-10) History of delivery (~1991) ?Z98.891 - History of uterine scar from previous surgery (ICD-10) History of strabismus surgery (~1970) ?Z98.890 - Other specified postprocedural states (ICD-10) History of hysterectomy (~2003) ?Z90.710 - Acquired absence of both cervix and uterus (ICD-10) H/O gastric sleeve (~2016) ?Z90.3 - Acquired absence of stomach [part of] (ICD-10) S/P LASIK surgery of both eyes (~2003) ?Z98.890 - Other specified postprocedural states (ICD-10) History of cholecystectomy ?Z90.49 - Acquired absence of other specified parts of digestive tract (ICD- 10) Social History (Updated 06/08/25 @ 16:28 by Audrey Lazo MD) Narrative: Lives independently with . Denies tobacco use. Drinks 1 drink three times a week. Denies recreational drug use. What is your current living situation?: I presently have a place to live Problems where you live: no known problems Problems where you live details: N/A In the past 12 months, utilities in danger of being shut off: no In past 12 months, lack of transportation kept you from medical appts, meetings, work, or getting things needed for daily living: no In the past 12 mos, have been you worried that your food would run out before you had money to buy more?: never true In the past 12 mos, the food you bought just didn't last and you didn't have money to buy more?: never true Highest level of school completed/degree received: Associate degree: occupational, technical, vocational program Smoking Status: Never smoker How often do you have a drink containing alcohol: 2-3 times a week How many standard drinks containing alcohol do you have on a typical day: 1 or 2 How often do you have six or more drinks on one occasion: Never AUDIT-C Alcohol total score: 3 Non-prescribed substance use: denies use Caffeine: Yes (coffee) How often does anyone, including family, friends and others, physically hurt you : never How often does anyone, including family, friends and others, insult or talk down to you: never How often does anyone, including family, friends and others, threaten you with harm: never How often does anyone, including family, friends and others, scream or curse at you: never service: Yes Exam Const: Vital Signs, click to edit/add: Vital Signs - 24 hr 06/08/25 09:38 06/08/25 09:50 06/08/25 10:00 Temperature 97.8 F Pulse Rate 73 80 Pulse Rate [Pulse Oximeter] 93 Respiratory Rate 20 Blood Pressure 144/98 H Blood Pressure [Le ft Upper Arm] 143/95 H Pulse Oximetry 95 96 91 Oxygen Delivery Me thod Room Air 06/08/25 10:10 06/08/25 10:14 06/08/25 10:15 Temperature Pulse Rate 71 80 Pulse Rate [Pulse Oximeter] Respiratory Rate 16 Blood Pressure 144/98 H Blood Pressure [Le ft Upper Arm] Pulse Oximetry 98 100 100 Oxygen Delivery Me thod 06/08/25 10:38 06/08/25 10:45 06/08/25 11:00 Temperature Pulse Rate 82 84 84 Pulse Rate [Pulse Oximeter] Respiratory Rate Blood Pressure Blood Pressure [Le ft Upper Arm] Pulse Oximetry 96 94 98 Oxygen Delivery Me thod 06/08/25 11:01 06/08/25 11:15 06/08/25 11:30 Temperature Pulse Rate 82 94 85 Pulse Rate [Pulse Oximeter] Respiratory Rate Blood Pressure 147/78 H Blood Pressure [Le ft Upper Arm] Pulse Oximetry 98 100 98 Oxygen Delivery Me thod 06/08/25 11:32 Temperature Pulse Rate 84 Pulse Rate [Pulse Oximeter] Respiratory Rate 16 Blood Pressure 148/88 H Blood Pressure [Le ft Upper Arm] Pulse Oximetry 98 Oxygen Delivery Me thod This 60-year-old female is alert, interactive, no apparent distress but seems like she is in pain. Face atraumatic, sclera clear, pupils equal round reactive . Speech is normal. No tenderness over her neck, no adenopathy. Patient lying flat on the bed. Lungs are clear, no wheezing or crackles, no tachypnea or accessory muscle use. CV regular rate and rhythm, no murmur, normal S1-S2. No appreciable palpable chest wall tenderness. Abdomen is soft, nontender, nondistended, no organomegaly. She is holding her left hip externally rotated and flexed at the knee. She has good distal pulses in her left foot in normal sensation. She does not want me to move her hip at this time. She has no pain over her left shoulder or the humerus, does have pain over certainly the lateral malleolus around the elbow, note no traumatic skin changes or effusion but complains of pain with any range of motion. She does feel pain down into the forearm, complains of pain when I palpate in the wrist as well as the metacarpals of the hand generally. See no traumatic skin changes such as swelling, bruising or abrasions. She has normal sensation of her fingers, normal cap refill. Really does not want to move this lower forearm from the elbow on due to complaints of pain. Difficult to say if there is referred pain or where exactly it is coming from. Documenting provider has reviewed patient's vital signs: yes Course Course ED Course: Patient does need acute pain management. We will give her 4 mg IV Zofran and 4 mg IV morphine. She will be placed on pulse oximetry for monitoring of her respiratory status after receiving IV narcotics as well as the intranasal fentanyl by EMS EN route. She will be getting x-rays of her pelvis and left hip, will also x-ray her left arm from the elbow down to the hand. Will get basic labs with CBC and comprehensive metabolic panel. This patient certainly sounds like she definitely has a fracture in the hip based on clinical exam and her pain complaints. It is possible it could be a pelvic fracture or upper femur fracture as well. Will be getting x-ray images to look at these things. Will also x-ray the arm to ensure no fracture. Reevaluation(s) Time of Reevaluation #1: 10:32 Reevaluation #1: Did go into x-ray to look at patient's films, she does have a left hip fracture, looks like it is surgical neck but need to look at images closer. I have subsequently ordered one-view chest x-ray and EKG. Patient should be back into the department soon. Will await Radiology over review of her images, need to look at her other images myself as well when they load to the computer. Time of Reevaluation #2: 10:50 Reevaluation #2: Did update patient and presumably her whom is here now that there is a hip fracture. There understand that will be surgery. She takes her Dupixent for her skin. Consultations Consultation #1: Did speak with Orthopedics, Dr. Darby is here in OR. He agrees there is a hip fracture, case will likely happen tomorrow. I will subsequently talk to the hospitalist. Time: 10:55 Consultation #2: Did speak with Dr. Lazo, she does accept this patient. Time: 11:01 Consultation #3: Have talked to Dr. Ricketts from anesthesia. They are going to try to do a nerve block for this patient for comfort. Right now everyone is busy with cases in the OR, they will attempt to get this as soon as possible. Time: 11:42 Vital Signs Vital signs: Initial Vital Signs Temperature 97.8 F 06/08/25 09:38 Temperature Source Temporal Artery Scan 06/08/25 09:38 Pulse Rate 93 06/08/25 09:38 Respiratory Rate 20 06/08/25 09:38 Blood Pressure 143/95 H 06/08/25 09:38 Blood Pressure Mean 111 H 06/08/25 09:38 Blood Pressure Position Sitting 06/08/25 09:38 Pulse Oximetry 95 06/08/25 09:38 Oxygen Delivery Method Room Air 06/08/25 09:38 Vital Signs Temperature 97.8 F 06/08/25 09:38 Pulse Rate 93 06/08/25 09:38 Respiratory Rate 20 06/08/25 09:38 Blood Pressure 143/95 H 06/08/25 09:38 Pulse Oximetry 95 06/08/25 09:38 Oxygen Delivery Method Room Air 06/08/25 09:38 Temperature 98.0 F 06/08/25 15:33 Pulse Rate 95 06/08/25 15:33 Respiratory Rate 16 06/08/25 15:33 Blood Pressure 154/94 H 06/08/25 15:33 Pulse Oximetry 97 06/08/25 15:33 Oxygen Delivery Method Room Air 06/08/25 15:33 Medications Administered Medications: Generic Name Dose Route Start Last Admin Trade Name Freq PRN Reason Stop Dose Admin Hydromorphone HCl 0.5 mg 06/08/25 12:45 06/08/25 14:20 Hydromorphone 0.5 Mg/0.5 Ml Inj IVP 0.5 mg Q1H PRN Administration Pain Oxycodone HCl 5 mg 06/08/25 12:45 06/08/25 16:09 Oxycodone 5 Mg Tablet PO 5 mg Q4H PRN Administration Pain Discontinued Medications Generic Name Dose Route Start Last Admin Trade Name Freq PRN Reason Stop Dose Admin Morphine Sulfate 4 mg 06/08/25 09:58 06/08/25 09:45 Morphine 4 Mg/Ml Inj IVP 06/08/25 09:59 4 mg ONCE ONE Administration Morphine Sulfate 2 mg 06/08/25 11:06 06/08/25 11:28 Morphine 2 Mg/Ml Inj IVP 2 mg Q2H PRN Administration prn pain Ondansetron HCl 4 mg 06/08/25 09:58 06/08/25 09:45 Ondansetron 2 Mg/Ml Inj IVP 06/08/25 09:59 4 mg ONCE ONE Administration Medical Decision Making Lab Data Lab results reviewed: Yes I reviewed the patient's lab results Labs: Lab Results 06/08/25 Range/Units 09:40 WBC 5.41 (4.50-11.00) K/uL RBC 4.00 (4.00-5.20) m/uL Hgb 12.4 (12.0-16.0) gm/dL Hct 37.8 (33.0-51.0) % MCV 95 (80-100) fL MCH 31 (26-34) pg MCHC 33 (32-36) gm/dL RDW Coeff of Filomena 12.4 (11.5-15.5) % Plt Count 194 (140-440) K/uL Neut % (Auto) 54.7 (42.0-72.0) % Lymph % (Auto) 32.3 (20-44) % [place] % (Auto) 7.4 (0.0-11.0) % Eos % (Auto) 5.0 (0.0-7.0) % Baso % (Auto) 0.4 (0.0-3.0) % Neut # (Auto) 2.96 (1.7-7.0) K/uL Lymph # (Auto) 1.75 (0.90-2.90) K/uL [place] # (Auto) 0.40 (0.00-0.90) K/UL Eos # (Auto) 0.27 (0.00-0.50) K/uL Baso # (Auto) 0.02 (0.00-0.30) K/uL Abs Immat Gran (auto) 0.01 (0.00-0.30) K/uL Imm/Tot Granulo (auto) 0.2 % Sodium 139 (135-149) mmol/L Potassium 4.5 (3.6-5.1) mmol/L Chloride 105 (96-114) mmol/L Carbon Dioxide 30 (20-32) mmol/L Anion Gap 4 L (7-15) mEq/L BUN 16 (7-30) mg/dL Creatinine 0.9 (0.5-1.5) mg/dL Estimated Creat Clear 71.21 Estimated GFR 74 ml/min Glucose 106 (60-115) mg/dL Calcium 9.1 (8.4-10.6) mg/dL Total Bilirubin 0.3 (0.1-1.5) mg/dL AST 40 H (12-35) U/L ALT 31 (4-35) U/L Alkaline Phosphatase 110 (40-150) U/L Total Protein 6.8 (6.0-8.3) g/dL Albumin 3.9 (3.3-5.0) g/dL Imaging Data XR left hip/pelvis: Attestation: I have reviewed the pertinent imaging results. My impression: Has fractured left hip. Radiologist's impression: Patient: [facility] Facility:?[facility] Patient ID:?[id number] Site Patient ID:?[id number]. Site :?[id number] Study:?XRay-Hip Left 2 VIEW-06/08/2025 10:46:09 AM Ordering Physician:?Suzette Reed Final Report: Indication: Fall, pain Technique: Pelvis and left hip 3 views Comparison: 04/15/2024 Findings: Ovoid artifacts overlie the right hip. Displaced fracture of the left femoral neck. The fracture appears to be sub occipital. No involvement of the trochanters. Some rotation noted involving the femoral diaphysis in relation to the femoral head. Impression: Displaced left femoral neck fracture. Dictated by Ciaran Quinones MD @ 06/08/2025 10:53:36 AM (Electronic Signature) XR left elbow: Attestation: I have reviewed the pertinent imaging results. My impression: Do not appreciate definite elbow abnormality, on one view question just a slight irregularity along the radial head, will await Radiology over-read. Radiologist's impression: Patient: [facility] Facility:?[facility] Patient ID:?[id number] Site Patient ID:?[id number]. Site :?[id number] Study:?XRay-Extremity Left ELBOW 3 VIEW-06/08/2025 10:46:46 AM Ordering Physician:?Suzette Reed Final Report: INDICATION: Fall. Pain, not otherwise described. COMPARISON: None available. TECHNIQUE: Three views of the left elbow. FINDINGS: Mineralization: Normal. Alignment: Normal. Bones and Joints: No fracture is identified. Soft Tissues: No joint effusion or significant periarticular soft tissue swelling. IMPRESSION: No acute traumatic injury is identified. Dictated by Olu Becerra MD @ 06/08/2025 10:59:53 AM (Electronic Signature) XR left wrist: Attestation: I have reviewed the pertinent imaging results. My impression: Do not appreciate any wrist fracture on my preliminary review. Radiologist's impression: Patient: KAY GALEANO Facility:?[facility] Patient ID:?[id number] Site Patient ID:?[id number]. Site :?1965 Study:?XRay-Extremity Left WRIST 3 VIEWS-06/08/2025 10:45:20 AM Ordering Physician:?Suzette Reed Final Report: Indication: Injury and pain Technique: Left wrist 3 view Comparison: None Findings: Bones: Alignment is normal. No fractures or bone lesions. Joint spaces: Narrowing with hypertrophic spurring at the 1st carpometacarpal joint. Soft tissues: Unremarkable. Impression: No sign of acute injury in the left wrist. Dictated by Ciaran Quinones MD @ 06/08/2025 10:51:00 AM (Electronic Signature) XR left hand: Attestation: I have reviewed the pertinent imaging results. My impression: No hand fracture noted on my preliminary review. Radiologist's impression: Patient: [facility] Facility:?[facility] Patient ID:?[id number] Site Patient ID:?[id number]. Site :?1965 Study:?XRay-Extremity Left HAND 3 VIEW-06/08/2025 10:46:30 AM Ordering Physician:Vinita Reed Final Report: INDICATION: Posttraumatic pain, not otherwise described. COMPARISON: None available. TECHNIQUE: Three views of the left hand. FINDINGS: Mineralization: Normal. Alignment: Normal. Bones and Joints: No fracture is identified. There is a small well corticated focus of ossification adjacent to the dorsal base of the left 2nd distal phalanx on the oblique view, not considered to be clinically significant given its sclerotic borders. Similar findings associated with the interphalangeal joint of the thumb as demonstrated on the PA view. Advanced osteoarthrosis of the 1st carpometacarpal joint is noted incidentally. Soft Tissues: Unremarkable. IMPRESSION: No acute traumatic injury is identified. Incidental findings as above. Dictated by Olu Becerra MD @ 06/08/2025 10:58:54 AM (Electronic Signature) Chest x-ray: Attestation: I have reviewed the pertinent imaging results. My impression: One-view chest x-ray without any infiltrate or acute pathology on my preliminary review. Radiologist's impression: Patient: KAY GALEANO Facility:?[facility] Patient ID:?[id number] Site Patient ID:?[id number]. Site :?1965 Study:?XRay-Chest 1 VIEW-06/08/2025 10:47:09 AM Ordering Physician:?Suzette Reed Final Report: INDICATION: Fall. Pain, not otherwise described. COMPARISON: None available. TECHNIQUE: Single AP view of the chest. FINDINGS: Medical Devices: None. Lung Volumes: Adequate inspiration. No significant atelectasis. Lungs: Clear lungs. Pleura and Pleural spaces: No significant pleural effusion. No pneumothorax. Mediastinum: Normal cardiomediastinal silhouette. Bony Thorax and Soft Tissues: No significant incidental findings. Incidental proximal right humeral bone island. IMPRESSION: No acute traumatic injury is identified. Dictated by Olu Becerra MD @ 06/08/2025 10:57:18 AM (Electronic Signature) ECG Data Attestation: I personally reviewed and interpreted this ECG as follows: (Normal sinus rhythm, 84 beats per minute. No acute ischemia or infarct noted. QT corrected 475 milliseconds.) Prior ECG tracings: available for review (Compared to March 2023, no significant change.) Discharge Plan Discharge Clinical Impression: Closed fracture of left hip, Fall Patient Disposition: Admitted As Inpatient
[2025-06-08 09:55] LABS: Hematocrit* 37.8 % (33.0-51.0); Hemoglobin* 12.4 gm/dL (12.0-16.0); Immature Granulocytes Abs Auto 0.01 K/uL (0.00-0.30); Immature Granulocytes Pct Auto 0.2 %; Lymphocytes Absolute Auto 1.75 K/uL (0.90-2.90); Mean Corpuscular HGB Conc 33 gm/dL (32-36); Mean Corpuscular Hemoglobin 31 pg (26-34); Mean Corpuscular Volume 95 fL (80-100); RDW Coefficient of Variation % 12.4 % (11.5-15.5); Red Blood Count* 4.00 m/uL (4.00-5.20); White Blood Count* 5.41 K/uL (4.50-11.00)
[2025-06-08 09:56] LABS: Slide Review Reflex No
--- OUTSIDE RECORDS SUMMARY | 2025-06-08 09:56 | XMS_ITS | Clinical Summary ---
Author Organization [facility] Address [address] , [address] [place] [address] Phone Care Team Providers Care Chart Collector Name Role Phone Sofia DAVIES, Gloria Brown Conditions or Problems Problem Name Problem Code Onset Date Status Entry Date Provider Comment Standard Description Annotate Primary stabbing headache AND DAILY ZAVALA G44.85 (ICD-10-CM ) 04/06 Active 04/06 Rodney Puri MD Primary stabbing headache Insomnia NOS 882158826 (SNOMED CT) 10/08 Active 10/08 Rodney Puri MD Insomnia Stress at work 356483650 (SNOMED CT) 03/07 Active 03/31 Valarie Hanson PhD Stress at work Primary stabbing headache 370069771 (SNOMED CT) 04/06 Inactive 04/06 Rodney Puri MD Idiopathic stabbing headache Complicated migraine 522751213 (SNOMED CT) 04/06 Active 04/06 Rodney Puri MD Complicated migraine Headache, mixed 18348770 (SNOMED CT) 10/31 Resolved 10/31 Rodney Puri MD Chronic mixed headache syndrome Hx of cerebellar stroke (CVA) 276555968 (SNOMED CT) 04/06 Active 04/06 Rodney Puri MD History of cerebrovascular accident Alteration of awareness, transient 891679085 (SNOMED CT) 02/26 Resolved 02/26 Rodney Puri MD Transient altered mental status MRI, brain, abnormal 341268738 (SNOMED CT) 02/26 Resolved 02/26 Rodney Puri MD Magnetic resonance imaging of brain abnormal Trigeminal neuralgia 60549858 (SNOMED CT) 10/31 Resolved 10/31 Rodney Puri MD Trigeminal neuralgia Unsteady gait 32079685 (SNOMED CT) 04/06 Active 04/06 Rodney Puri MD Unsteady when walking Word finding difficulty 401447300 (SNOMED CT) 04/06 Active 04/06 Rodney Puri MD Word finding difficulty HEADACHE 28120925 (SNOMED CT) 02/26 Resolved 02/26 Keshav Davila MD Headache Headache, mixed 97236549 (SNOMED CT) 10/31 Removed 10/31 Keshav Davila MD Chronic mixed headache syndrome Trigeminal neuralgia 31302173 (SNOMED CT) 10/31 Removed 10/31 Keshav Davila MD Trigeminal neuralgia MRI, brain, abnormal 579730190 (SNOMED CT) 02/26 Removed 02/26 Abe Ac MD Magnetic resonance imaging of brain abnormal HEADACHE 48940274 (SNOMED CT) 02/26 Removed 02/26 Abe Ac MD Headache Slurred speech 432830292 (SNOMED CT) 02/26 Active 02/26 Abe Ac MD Slurred speech Alteration of awareness, transient 862239194 (SNOMED CT) 02/26 Removed 02/26 Abe Ac MD Transient altered mental status Medications Medication Instructions Start Date Stop Date Generic Name ND Provider GABAPENTIN 300 MG CAPS TAKE TWO CAPSULES BY MOUTH TWICE DAILY 02/05 gabapentin [id number] Gloria Moralesucheril PA-C GABAPENTIN 300 MG CAPS Take 2 capsule by mouth three times a day 04/07 gabapentin 58695967764 Gloria Italia Cherucheril PA-C SUMATRIPTAN SUCCINATE 100 MG TABS Take 1/2 tablet by mouth as directed : half tab to 1 tab at onset of headache. May repeat in 2 hour as needed up to 2 tabs per 24 hour. Not to exceed 9 day use per month. 10/31 sumatriptan succinate [id number] [facility] RIZATRIPTAN BENZOATE 10 MG TABS take 1 tab at headache onset. may repeat a dose after 2 hours if needed. max: 2 tab per 24 hours. Do not take within 24 hours of any other triptan medication. 04/07 rizatriptan [id number] Gloria Italia Sofia [facility] Magnesium (oxide/AA chelate) (magnesium oxide-mg aa chelate) oxide/AA chelate [facility]Saint [facility] riboflavin (vitamin B2) (riboflavin (vitamin b2)) vitamin B2 Gloria [facility] melatonin melatonin Gloria [facility] GABAPENTIN 300 MG CAPS TAKE 2 CAPSULES OR 600 MG BY MOUTH TWICE A DAY 02/18 gabapentin 80924192411 [facility] GABAPENTIN 300 MG CAPS TAKE TWO CAPSULES BY MOUTH TWICE DAILY 02/05 gabapentin 99133994130 Rodney Puri MD LISINOPRIL 10 MG TABS lisinopril 17531272636 [facility] PATADAY 0.7 % SOLN INSTILL ONE DROP INTO BOTH EYES EVERY MORNING* olopatadine 83090303950 [facility] NAPROSYN 500 MG TABS 1 tablet by mouth as directed : 1 tab every 8 hour as needed by mouth with your tryptan. Not to exceed 3 tabs/day, or 9 days use per month 10/08 naproxen 67013601496 Rodney Puri MD GABAPENTIN 100 MG CAPS take 6 capsules twice daily 10/29 gabapentin 41187857774 Rodney Puri MD GABAPENTIN 300 MG CAPS TAKE 2 CAPSULES OR 600 MG BY MOUTH TWICE A DAY 02/18 gabapentin 74258126903 Rodney Puri MD SUMATRIPTAN SUCCINATE 100 MG TABS Take 1/2 tablet by mouth as directed : half tab to 1 tab at onset of headache. May repeat in 2 hour as needed up to 2 tabs per 24 hour. Not to exceed 9 day use per month. 10/31 sumatriptan succinate 82090405664 Rodney Puri MD NORTRIPTYLINE HCL 10 MG CAPS 4 capsule by mouth as directed 40 mg per night for 7 days then decrease by 10 mg every week until off it completely 04/06 nortriptyline 34772526096 Rodney Puri MD NORTRIPTYLINE HCL 10 MG CAPS 10/31 nortriptyline 39096818985 Rodney Puri MD CYCLOBENZAPRINE HCL 10 MG TABS TAKE ONE TABLET BY MOUTH ONE TIME DAILY AT BEDTIME NEEDED FOR MUSCLE SPASM 10/31 cyclobenzaprine 97797054412 Rodney Puri MD DUPIXENT 200 MG/1.14ML SO dupilumab 62352858924 Rodney goldsmith MD GABAPENTIN 100 MG CAPS 100 mg 2 times/day for 3 days; then increase by 100 mg 2 times/day every 3 days until pain controlled or until 600 mg 2 times/day 04/06 gabapentin 44110779739 Rodney Puri MD GABAPENTIN 100 MG CAPS take 6 capsules twice daily 10/29 gabapentin 23615790304 Rodney Puri MD NORTRIPTYLINE HCL 50 MG CAPS take 1 cap (50 mg) by mouth daily at bedtime 10/13 nortriptyline 49601439588 Rodney Puri MD NORTRIPTYLINE HCL 10 MG CAPS 4 capsule by mouth as directed 40 mg per night for 7 days then decrease by 10 mg every week until off it completely 04/06 nortriptyline 38261372169 Rodney Puri MD GABAPENTIN 100 MG CAPS 100 mg 2 times/day for 3 days; then increase by 100 mg 2 times/day every 3 days until pain controlled or until 600 mg 2 times/day 04/06 gabapentin 34563177060 Rodney Puri MD NORTRIPTYLINE HCL 10 MG CAPS 10/31 nortriptyline 21267827229 Rodney Puri MD OMEPRAZOLE 40 MG CPDR omeprazole 31613984194 Rodney Puri MD NORTRIPTYLINE HCL 25 MG CAPS 25 mg Q HS x 1 week, then 50 mg Q HS 09/18 nortriptyline 86884762205 Keshav Davila MD NORTRIPTYLINE HCL 50 MG CAPS take 1 cap (50 mg) by mouth daily at bedtime 10/13 nortriptyline 62296099738 Gloria Black PA-C NORTRIPTYLINE HCL 25 MG CAPS 25 mg Q HS x 1 week, then 50 mg Q HS 09/18 nortriptyline 98084709200 Keshav Davila MD ZOLPIDEM TARTRATE 10 MG TABS Take 1 Tablet (10 mg) by mouth at bedtime if needed for Sleep. 09/10 zolpidem 05624134869 Keshav Davila MD CYCLOBENZAPRINE HCL 10 MG TABS Take 1 Tablet (10 mg) by mouth 2 times daily if needed for Muscle Spasm. 09/10 cyclobenzaprine 36967604405 Keshav Davila MD EPINEPHRINE 0.3 MG/0.3ML SOAJ Use as directed 04/18 epinephrine 77571700705 Keshav Davila MD MULTIVITAMIN TABS 02/26 MULTIPLE VITAMINS-MINERALS Abe Ac MD METHYLPREDNISOLONE 4 MG TBPK Take by mouth as instructed per packaging. 09/14 methylprednisolone 89589873514 Keshav Davila MD aspirin 81 mg tablet,chewable One PO q day 03/22 aspirin 29190004499 Abe Ac MD TRIAMCINOLONE ACETONIDE 0.1 % OINT Apply topically to affected area(s) 2 times daily. 12/30 triamcinolone acetonide 93441841384 Keshav Davila MD FLUTICASONE PROPIONATE 50 MCG/ACT SUSP Inhale 2 Sprays to both nostrils once daily. . 04/18 fluticasone propionate 54595742805 Keshav Davila MD multivitamin Take 1 tablet by mouth once daily. Flinestones BID 09/30 MVI Keshav Davila MD HYDROXYZINE HCL 25 MG TABS Take 1 Tablet (25 mg) by mouth every 6 hours if needed for Itching. 09/14 hydroxyzine hcl 61793841870 Keshav Davila MD CYCLOBENZAPRINE HCL 10 MG TABS 12/25 cyclobenzaprine 42435020874 Abe Ac MD EPINEPHRINE 0.3 MG/0.3ML SOAJ Use as directed epinephrine 18543257692 Keshav Davila MD ZOLPIDEM TARTRATE 10 MG TABS TAKE ONE TABLET BY MOUTH ONE TIME DAILY AT BEDTIME NEEDED zolpidem 20691953033 Keshav Davila MD CYCLOBENZAPRINE HCL 10 MG TABS TAKE ONE TABLET BY MOUTH ONE TIME DAILY AT BEDTIME NEEDED FOR MUSCLE SPASM 10/31 cyclobenzaprine 99667041863 Keshav Davila MD ZOLPIDEM TARTRATE 10 MG TABS Take 1 Tablet (10 mg) by mouth at bedtime if needed for Sleep. 09/10 zolpidem 94628418243 QIEUSER QIEUSER TRIAMCINOLONE ACETONIDE 0.1 % OINT Apply topically to affected area(s) 2 times daily. 12/30 triamcinolone acetonide 15331052441 QIEUSER QIEUSER multivitamin Take 1 tablet by mouth once daily. Flinestones BID 09/30 MVI QIEUSER QIEUSER METHYLPREDNISOLONE 4 MG TBPK Take by mouth as instructed per packaging. 09/14 methylprednisolone 32499190826 QIEUSER QIEUSER HYDROXYZINE HCL 25 MG TABS Take 1 Tablet (25 mg) by mouth every 6 hours if needed for Itching. 09/14 hydroxyzine hcl 15824129920 QIEUSER QIEUSER FLUTICASONE PROPIONATE 50 MCG/ACT SUSP Inhale 2 Sprays to both nostrils once daily. . 04/18 fluticasone propionate 71864056623 QIEUSER QIEUSER EPINEPHRINE 0.3 MG/0.3ML SOAJ Use as directed 04/18 epinephrine 70985185525 QIEUSER QIEUSER CYCLOBENZAPRINE HCL 10 MG TABS Take 1 Tablet (10 mg) by mouth 2 times daily if needed for Muscle Spasm. 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 FALLRSKASSES Done Fall ris k [...] Detail Appointment 11:30 AM Gloria Black PA-C, [address] [place] [address], [address], [place], [address], Pending order Follow up SASHA Pending order [...] Procedures Code Procedure Name Date Entry Date [id number] MRI-Brain W/O CPT-26332 MRI Brain W/O ORDERS Patient Instructions ORDERS Patient Instructions ORDERS Patient Instructions ORDERS Follow up [facility]-[id number] Documentation of current medicatio ns ORDERS Patient Instructions ORDERS Patient Instructions ORDERS Follow up SASHA ORDERS Patient Instructions ORDERS Patient Instructions [facility]-[id number] Documentation of current medicatio ns ORDERS Physical Therapy [id number] Other Referral ORDERS Follow up with Neurologist or SASHA ORDERS Patient Instructions ORDERS Follow up in clinic or telemedicine with provider or SASHA ORDERS Neuropsychology Evaluation 2 CPT-98638 Npsy Interview w/Provider - 1st hour 2022 CPT-94374 Npsy Interp/Rpt by Provider - 1st hour 01/03/29 CPT-19722 Npsy Interp/Rpt by Provider - 2 hours 11/12/28 CPT-32006 Npsy Test by Tech (2+ Tests) - 1st 30 min CPT-60379 Npsy Test by Tech (2+ Tests) - 2.5 hours ORDERS Patient Instructions [facility]-[id number] Documentation of current medicatio ns ORDERS Follow up in clinic or telemedicine 10/31 CPT-N4102X ProHance Gadolinium- based MR Contrast - 20 ml vial CPT-02975 MRI Brain W/WO CPT-N4559G ProHance Gadolinium- based MR Contrast - 20 ml vial [id number] MRI-Brain W/WO MS Protocol 2 ORDERS Speech Therapy ORDERS Occupational Therapy ORDERS Follow up in clinic or telemedicine 07/11 [facility]-[id number] Documentation of current medicatio ns ORDERS Follow up [facility]-[id number] Documentation of current medicatio ns ORDERS Follow up SASHA ORDERS Follow up SASHA ORDERS Vitamin D 25 Hydroxy ORDERS Magnesium Serum ORDERS Vitamin B2 (Riboflavin) 2020 ORDERS ESR (Sedimentation Rate) 09/20/21 ORDERS Follow up ORDERS Follow up ORDERS Patient Instructions ORDERS Other Test CPT-59162 EEG EXTENDED (<= 1 HOUR) (END) ORDERS Other Test CPT-U1316I MultiHance Gadoliniu m-based MR Contrast - 15 ml vial CPT-96339 MRA Neck W/WO CPT-3100F PQRS Stenosis Measurement 20 23/02/29 CPT-05199 MRA Head W/O [id number] MRA-Neck W/WO [id number] MRA-Head W/O ORDERS Other Test ORDERS Platelet [...]
[2025-06-08 10:08] LABS: Albumin* 3.9 g/dL (3.3-5.0); Chloride* 105 mmol/L (96-114); Sodium* 139 mmol/L (135-149)
[2025-06-08 10:09] LABS: Potassium* 4.5 mmol/L (3.6-5.1)
[2025-06-08 10:11] LABS: Alanine Aminotransferase* 31 U/L (4-35); Alkaline Phosphatase* 110 U/L (40-150); Anion Gap 4 mEq/L (7-15); Aspartate Amino Transferase* 40 U/L (12-35); Bilirubin Total* 0.3 mg/dL (0.1-1.5); Blood Urea Nitrogen* 16 mg/dL (7-30); Carbon Dioxide* 30 mmol/L (20-32); Creatinine* 0.9 mg/dL (0.5-1.5); Est. Creatinine Clearance* 71.21; Estimated Glomerular Filt Rate 74 ml/min; Total Protein* 6.8 g/dL (6.0-8.3)
[2025-06-08 10:12] LABS: Calcium* 9.1 mg/dL (8.4-10.6); Glucose* 106 mg/dL (60-115)
--- NOTE | 2025-06-08 10:31 | CRLHL7_ITS ---
For Patients: As a result of the Cures Act, medical imaging exams and procedure reports are released immediately into your electronic medical record. You may view this report before your referring provider. If you have questions, please contact your health care provider. INDICATION: Fall. Pain, not otherwise described. COMPARISON: None available. TECHNIQUE: Single AP view of the chest. FINDINGS: Medical Devices: None. Lung Volumes: Adequate inspiration. No significant atelectasis. Lungs: Clear lungs. Pleura and Pleural spaces: No significant pleural effusion. No pneumothorax. Mediastinum: Normal cardiomediastinal silhouette. Bony Thorax and Soft Tissues: No significant incidental findings. Incidental proximal right humeral bone island. IMPRESSION: No acute traumatic injury is identified. Dictated by Olu Becerra MD @ 06/08/2025 10:57:18 AM (Electronically Signed)
--- NOTE | 2025-06-08 13:22 | W.PM.NB ---
Nerve Block Nerve Block Time Seen by Provider: 12:30 Date Seen: 06/08/25 Type of block requested by surgeon for post-operative analgesia: JOSE J/LFCN Side: left Time out performed: Yes Verification of patient name: Yes Verification of date of : Yes Site marking: site marked Name of person performing procedure: Tony Ricketts Continuous monitoring Was continuous monitoring of O2 sat, B/P, court monitor, recorded every 15 minutes?: Yes Procedure Checklist: sterile prep, needles and gloves Ultrasound guided. Images saved: Yes Medications given in 5ml increments after negative aspiration: Ropivicaine %: 0.5 mL: 30 Needle gauge: 21 Patient tolerated procedure well: Yes Additional comments: Injected in 5ml increments after negative aspiration. JOSE J only, no LFCN Block Charges Block Charge (with Pro Fee): Other Periph Nerve Block Use of Ultrasound Machine for Block: Yes- US Guidance/pain block
--- NOTE | 2025-06-08 14:59 | PC.NURSE ---
Pt arrived to the unit @ 1150 via bed, accompanied by . Pt AxOx3, pleasant, and cooperative with cares. LSCTA on RA. VSS. Pt reported severe pain to the L hip, block was placed with minimal relief. PRN Dilaudid given. Pt now able to rest, respirations not labored and even. RR 16. L arm elevated, Pt reporting soreness. Pt on bedrest. Drinking fluids. Call light within reach. at bedside.
--- NOTE | 2025-06-08 16:24 | PM.IMHP1 ---
Assessment and Plan Assessment and plan (1) Fall: Problem comment: - Happened at work today Status: Acute (2) Closed fracture of left hip: Problem comment: - Will need surgery tomorrow morning - CXR and EKG reviewed. Asthma quiescent. No further workup needed prior to surgery tomorrow morning. Will let her eat today and NPO after midnight. Status: Acute (3) Hypertension: Problem comment: - Continue lisinopril Status: Chronic (4) Asthma: Problem comment: - Inactive, has not had an exacerbation or used albuterol in years. 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 She tells me there was a curb at the end of the garage and when she stepped back, her heel missed the curb and she started falling backward. He tried to catch her balance and thought she was going to be caught by the truck parked next to hers, but she hit the ground instead. She hit on left her arm and left hip, but states that she did not hit her head or lose consciousness. She tells me she is overall healthy and has not had any asthma flare ups recently in her blood pressure has been good on lisinopril. Review of Systems Status of ROS: Reports: 10 or more systems reviewed and unremarkable except as noted in History and below Medical Decision Making Medical Decision Making Code Status: Full Code Has patient completed a Health Care Directive: No During This Stay, Who Would You Like To Make Decisions For You In The Event You Are Unable To Make Them For Yourself?: , Akash [facility] Medical History (Updated 06/08/25 @ 16:40 by Audrey Lazo MD) Asthma ?J45.909 - Unspecified asthma, uncomplicated (ICD-10) Atopic dermatitis ?L20.9 - Atopic dermatitis, unspecified (ICD-10) Hypertension ?I10 - Essential (primary) hypertension (ICD-10) Surgical History History of bunionectomy (11/2023) ?Z98.890 - Other specified postprocedural states (ICD-10) S/P panniculectomy (~2016) ?Z98.890 - Other specified postprocedural states (ICD-10) History of delivery (~1991) ?Z98.891 - History of uterine scar from previous surgery (ICD-10) History of strabismus surgery (~1970) ?Z98.890 - Other specified postprocedural states (ICD-10) History of hysterectomy (~2003) ?Z90.710 - Acquired absence of both cervix and uterus (ICD-10) H/O gastric sleeve (~2016) ?Z90.3 - Acquired absence of stomach [part of] (ICD-10) S/P LASIK surgery of both eyes (~2003) ?Z98.890 - Other specified postprocedural states (ICD-10) History of cholecystectomy ?Z90.49 - Acquired absence of other specified parts of digestive tract (ICD-10) Social History (Updated 06/08/25 @ 16:28 by Audrey Lazo MD) Narrative: Lives independently with . Denies tobacco use. Drinks 1 drink three times a week. Denies recreational drug use. What is your current living situation?: I presently have a place to live Problems where you live: no known problems Problems where you live details: N/A In the past 12 months, utilities in danger of being shut off: no In past 12 months, lack of transportation kept you from medical appts, meetings, work, or getting things needed for daily living: no In the past 12 mos, have been you worried that your food would run out before you had money to buy more?: never true In the past 12 mos, the food you bought just didn't last and you didn't have money to buy more?: never true Highest level of school completed/degree received: Associate degree: occupational, technical, vocational program Smoking Status: Never smoker How often do you have a drink containing alcohol: 2-3 times a week How many standard drinks containing alcohol do you have on a typical day: 1 or 2 How often do you have six or more drinks on one occasion: Never AUDIT-C Alcohol total score: 3 Non-prescribed substance use: denies use Caffeine: Yes (coffee) How often does anyone, including family, friends and others, physically hurt you: never How often does anyone, including family, friends and others, insult or talk down to you: never How often does anyone, including family, friends and others, threaten you with harm: never How often does anyone, including family, friends and others, scream or curse at you: never service: Yes Meds Home Medications and Allergies Home Medications ?Medication ?Instructions ?Recorded ?Confirmed ?Type gabapentin 300 mg capsule 600 mg PO BID 03/25/23 06/08/25 History lisinopril 20 mg tablet 20 mg PO HS 03/25/23 06/08/25 History albuterol sulfate 90 mcg/actuation 1 - 2 puff inhalation Q4H PRN 06/08/25 06/08/25 History aerosol inhaler wheezing dupilumab 300 mg/2 mL subcutaneous 300 mg subcut Q14D 06/08/25 06/08/25 History pen injector (Dupixent) epinephrine 0.3 mg/0.3 mL 0.3 mg IM .each time PRN allergies 06/08/25 06/08/25 History injection, auto-injector omeprazole 40 mg capsule,delayed 40 mg PO DAILY PRN 06/08/25 06/08/25 History release potassium chloride 10 mEq 10 meq PO DAILY 06/08/25 06/08/25 History tablet,extended release pramipexole 0.125 mg tablet 0.125 - 0.25 mg PO HS PRN 06/08/25 06/08/25 History rizatriptan 10 mg tablet 10 mg PO Q2H PRN 06/08/25 06/08/25 History Allergies Allergy/AdvReac Type Severity Reaction Status Date / Time amoxicillin (From Augmentin) Allergy Verified 06/08/25 09:42 bee venom protein (honey bee) Allergy Verified 06/08/25 09:42 clavulanic acid (From Allergy Verified 06/08/25 09:42 Augmentin) kiwi Allergy Verified 06/08/25 09:42 venom-wasp protein Allergy Verified 06/08/25 09:42 black raspberry flavor Allergy Uncoded 06/30/24 13:50 Exam Narrative: Exam Narrative: General: Tearful, otherwise no distress. Awake alert oriented x3. HEENT: Normocephalic atraumatic, pupils equally round and reactive to light and accommodation. Oropharynx clear. Mucous membranes are moist. No cervical lymphadenopathy, thyromegaly or carotid bruits. No JVD. Cardiovascular: Regular rate and rhythm. No murmurs, gallops, or rubs. Chest: No increased work of breathing. Clear to auscultation bilaterally. No crackles or wheezes. Abdomen: Bowel sounds present. Soft, nondistended, nontender. No hepatosplenomegaly or masses. Extremities: Left lower extremity is shortened and externally rotated. No lower extremity edema, no cyanosis or clubbing. Skin: No jaundice, no pallor, no rashes. Neuro: Grossly intact. No focal deficits. Const: Vital Signs, click to edit/add: Vital Signs - 24 hr 06/08/25 09:38 06/08/25 09:50 06/08/25 10:00 Temperature 97.8 F Pulse Rate 73 80 Pulse Rate [Pulse Oximeter] 93 Respiratory Rate 20 Blood Pressure 144/98 H Blood Pressure [Le ft Upper Arm] 143/95 H Blood Pressure [Ri ght Arm] Pulse Oximetry 95 96 91 Oxygen Delivery Me thod Room Air 06/08/25 10:10 06/08/25 10:14 06/08/25 10:15 Temperature Pulse Rate 71 80 Pulse Rate [Pulse Oximeter] Respiratory Rate 16 Blood Pressure 144/98 H Blood Pressure [Le ft Upper Arm] Blood Pressure [Ri ght Arm] Pulse Oximetry 98 100 100 Oxygen Delivery Me thod 06/08/25 10:38 06/08/25 10:45 06/08/25 11:00 Temperature Pulse Rate 82 84 84 Pulse Rate [Pulse Oximeter] Respiratory Rate Blood Pressure Blood Pressure [Le ft Upper Arm] Blood Pressure [Ri ght Arm] Pulse Oximetry 96 94 98 Oxygen Delivery Me thod 06/08/25 11:01 06/08/25 11:15 06/08/25 11:30 Temperature Pulse Rate 82 94 85 Pulse Rate [Pulse Oximeter] Respiratory Rate Blood Pressure 147/78 H Blood Pressure [Le ft Upper Arm] Blood Pressure [Ri ght Arm] Pulse Oximetry 98 100 98 Oxygen Delivery Me thod 06/08/25 11:32 06/08/25 12:13 06/08/25 12:13 Temperature Pulse Rate 84 Pulse Rate [Pulse Oximeter] 83 Respiratory Rate 16 18 Blood Pressure 148/88 H Blood Pressure [Le ft Upper Arm] Blood Pressure [Ri ght Arm] 149/98 H Pulse Oximetry 98 98 Oxygen Delivery Me thod Room Air Room Air 06/08/25 13:45 06/08/25 15:33 Temperature 98.0 F Pulse Rate Pulse Rate [Pulse Oximeter] 95 Respiratory Rate 16 Blood Pressure Blood Pressure [Le ft Upper Arm] Blood Pressure [Ri ght Arm] 154/94 H Pulse Oximetry 99 97 Oxygen Delivery Me thod Room Air Hospitalist - H&P: Result Labs Labs: Short CBC 06/08/25 Range/Units 09:40 WBC 5.41 (4.50-11.00) K/uL Hgb 12.4 (12.0-16.0) gm/dL Hct 37.8 (33.0-51.0) % Plt Count 194 (140-440) K/uL BMP 06/08/25 09:40 Sodium 139 Potassium 4.5 Chloride 105 Carbon Dioxide 30 BUN 16 Creatinine 0.9 Glucose 106 Calcium 9.1 Liver Function 06/08/25 Range/Units 09:40 Total Bilirubin 0.3 (0.1-1.5) mg/dL AST 40 H (12-35) U/L ALT 31 (4-35) U/L Alkaline Phosphatase 110 (40-150) U/L Albumin 3.9 (3.3-5.0) g/dL 06/08/2025 EKG: Normal sinus rhythm, 84 beats per minute, normal EKG. Ordering Physician: Brianna Bradford M.D. Date of Service: 06/08/25 Procedure(s): XR elbow LT min 3V Accession Number(s): [id number] cc: Fide Choudhary PA-C; Brianna Bradford M.D.~ For Patients: As a result of the 21st Century Cures Act, medical imaging exams and procedure reports are released immediately into your electronic medical record. You may view this report before your referring provider. If you have questions, please contact your health care provider. INDICATION: Fall. Pain, not otherwise described. COMPARISON: None available. TECHNIQUE: Three views of the left elbow. FINDINGS: Mineralization: Normal. Alignment: Normal. Bones and Joints: No fracture is identified. Soft Tissues: No joint effusion or significant periarticular soft tissue swelling. IMPRESSION: No acute traumatic injury is identified. Dictated by Olu Becerra MD @ 06/08/2025 10:59:53 AM (Electronically Signed) Ordering Physician: Brianna Bradford M.D. Date of Service: 06/08/25 Procedure(s): XR hand LT min 3V Accession Number(s): [id number] cc: Fide Choudhary PA-C; Brianna Bradford M.D.~ For Patients: As a result of the Cures Act, medical imaging exams and procedure reports are released immediately into your electronic medical record. You may view this report before your referring provider. If you have questions, please contact your health care provider. INDICATION: Posttraumatic pain, not otherwise described. COMPARISON: None available. TECHNIQUE: Three views of the left hand. FINDINGS: Mineralization: Normal. Alignment: Normal. Bones and Joints: No fracture is identified. There is a small well corticated focus of ossification adjacent to the dorsal base of the left 2nd distal phalanx on the oblique view, not considered to be clinically significant given its sclerotic borders. Similar findings associated with the interphalangeal joint of the thumb as demonstrated on the PA view. Advanced osteoarthrosis of the 1st carpometacarpal joint is noted incidentally. Soft Tissues: Unremarkable. IMPRESSION: No acute traumatic injury is identified. Incidental findings as above. Dictated by Olu Becerra MD @ 06/08/2025 10:58:54 AM (Electronically Signed) Ordering Physician: Brianna Bradford M.D. Date of Service: 06/08/25 Procedure(s): XR hip LT min 2V Accession Number(s): [id number] cc: Fide Choudhary PA-C; Brianna Bradford M.D.~ For Patients: As a result of the Cures Act, medical imaging exams and procedure reports are released immediately into your electronic medical record. You may view this report before your referring provider. If you have questions, please contact your health care provider. Indication: Fall, pain Technique: Pelvis and left hip 3 views Comparison: 04/15/2024 Findings: Ovoid artifacts overlie the right hip. Displaced fracture of the left femoral neck. The fracture appears to be sub occipital. No involvement of the trochanters. Some rotation noted involving the femoral diaphysis in relation to the femoral head. Impression: Displaced left femoral neck fracture. Dictated by Ciaran Quinones MD @ 06/08/2025 10:53:36 AM (Electronically Signed) Ordering Physician: Brianna Bradford M.D. Date of Service: 06/08/25 Procedure(s): XR wrist LT min 3V Accession Number(s): [id number] cc: Fide Choudhary PA-C; Brianna Bradford M.D.~ For Patients: As a result of the Cures Act, medical imaging exams and procedure reports are released immediately into your electronic medical record. You may view this report before your referring provider. If you have questions, please contact your health care provider. Indication: Injury and pain Technique: Left wrist 3 view Comparison: None Findings: Bones: Alignment is normal. No fractures or bone lesions. Joint spaces: Narrowing with hypertrophic spurring at the 1st carpometacarpal joint. Soft tissues: Unremarkable. Impression: No sign of acute injury in the left wrist. Dictated by Ciaran Quinones MD @ 06/08/2025 10:51:00 AM (Electronically Signed) Ordering Physician: Brianna Bradford M.D. Date of Service: 06/08/25 Procedure(s): XR chest 1V Accession Number(s): [id number] cc: Fide Choudhary PA-C; Brianna Bradford M.D.~ For Patients: As a result of the Cures Act, medical imaging exams and procedure reports are released immediately into your electronic medical record. You may view this report before your referring provider. If you have questions, please contact your health care provider. INDICATION: Fall. Pain, not otherwise described. COMPARISON: None available. TECHNIQUE: Single AP view of the chest. FINDINGS: Medical Devices: None. Lung Volumes: Adequate inspiration. No significant atelectasis. Lungs: Clear lungs. Pleura and Pleural spaces: No significant pleural effusion. No pneumothorax. Mediastinum: Normal cardiomediastinal silhouette. Bony Thorax and Soft Tissues: No significant incidental findings. Incidental proximal right humeral bone island. IMPRESSION: No acute traumatic injury is identified. Dictated by Olu Becerra MD @ 06/08/2025 10:57:18 AM (Electronically Signed)
[2025-06-08] MEDS: GABAPENTIN 300 MG CAPSULE 600 MG PO (17:01)
[2025-06-08] MEDS: POTASSIUM CHLORIDE 10 MEQ CAPSULE ER PO (17:13)
[2025-06-08] MEDS: SODIUM CHLORIDE 0.9 % (FLUSH) 10 ML SYRINGE 5 ML IVF (21:02)
--- NOTE | 2025-06-08 23:20 | PC.NURSE ---
end of shift: Pt. AOx4. VSS. Pt reports 06/18, verbalizing nothing seems to work. Updated MD; see orders. x2 assist for repositioning as tolerated. Pure wick placed. Pt. tolerating regular diet. Education provided on surgery and pain management options.
[2025-06-09] VITALS (26 sets, daily range): BP systolic 98–138; BP diastolic 50–92; PULSE 67–94; RESP 12–18; TEMP 35.4–37; O2SAT 81–99; BMI 30.5; BMI 30.6
[2025-06-09] MEDS: GABAPENTIN 300 MG CAPSULE 600 MG PO ×2 (05:23→18:26)
--- NOTE | 2025-06-09 07:02 | PC.NURSE ---
End of?Shift ?Note?262? ? Patient?hasbeen?cooperative throughout shift. VSS. Afebrile. A&Ox4.?Patient?suffered a fall at?work and sustained a left hip fracture. She also complains of?severe left?arm pain when arm is moved or touched. No fractures noted on arm.?Purewic?in place. Reposition as tolerated.?NPO. Call light within reach.?
[2025-06-09] MEDS: SODIUM CHLORIDE 0.9 % (FLUSH) 10 ML SYRINGE 5 ML IVF ×2 (08:25→20:46)
--- NOTE | 2025-06-09 13:00 | CRLHL7_ITS ---
For Patients: As a result of the Cures Act, medical imaging exams and procedure reports are released immediately into your electronic medical record. You may view this report before your referring provider. If you have questions, please contact your health care provider. Indication: Hip replacement surgery Technique: AP hip fluoroscopic image. Fluoroscopy time 64.3 seconds. Findings/Impression: Hardware from a left total hip arthroplasty is in satisfactory position. Dictated by Ciaran Quinones MD @ 06/10/2025 9:43:04 AM (Electronically Signed)
--- NOTE | 2025-06-09 13:09 | P.IMPN_ITS ---
Assessment and Plan Assessment and plan (1) Closed fracture of left hip: Problem comment: - S/P ORIF 06/09. - Left hip femoral neck fracture, displaced -Weight bear as tolerated operative extremity. - PT/OT consults for ambulation assistance/mobility education. - Social work consult for discharge planning. - DVT prophylaxis with at SCDs and Xarelto x5 days followed by aspirin for a total of 1 month. Status: Acute (2) Fall: Problem comment: - Happened at work Status: Acute (3) Hypertension: Problem comment: - Continue lisinopril Status: Chronic (4) Asthma: Problem comment: - Inactive, has not had an exacerbation or used albuterol in years. Status: Chronic (5) Osteoarthritis of left hip: Problem comment: mild - Continue gabapentin Status: Chronic Total Time Spent Total Time Spent: Time spent: Today I spent 45 minutes seeing the patient, discussing the patient with ER staff, reviewing Expanse and EPIC notes/diagnostics, discussing the care plan with our care time that includes social work, PT/OT, pharmacy, RT, retirement and documenting my impressions and plan in the medical record. Subjective Date Seen: 06/09/25 Interval history: No acute events overnight. Pt was c/o pain and given pain meds. Exam Narrative: Exam Narrative: Physical exam GENERAL: Comfortable, no acute distress. HEAD AND NECK: Atraumatic, normocephalic CARDIOVASCULAR: RRR. Normal S1, S2. No murmurs. RESPIRATORY: Clear to auscultation B/L. Good air entry B/L. No wheezes or rhonchi. NEUROLOGY: Alert, awake. Normal speech. PSYCH: Normal mood, normal affect. Const: Vital Signs, click to edit/add: Vital Signs - 24 hr 06/08/25 13:45 06/08/25 15:33 06/08/25 15:33 Temperature 98.0 F Pulse Rate [Pulse Oximeter] 95 95 Respiratory Rate 16 16 Blood Pressure [Ri ght Arm] 154/94 H Pulse Oximetry 99 97 Oxygen Delivery Me thod Room Air Oxygen Flow Rate 06/08/25 19:07 06/08/25 22:50 06/08/25 23:00 Temperature 98.2 F Pulse Rate [Pulse Oximeter] 101 H 89 Respiratory Rate 16 12 18 Blood Pressure [Ri ght Arm] 130/66 Pulse Oximetry 94 95 Oxygen Delivery Me thod Room Air Oxygen Flow Rate 06/09/25 02:15 06/09/25 02:16 06/09/25 03:00 Temperature 98.6 F Pulse Rate [Pulse Oximeter] 75 Respiratory Rate 16 Blood Pressure [Ri ght Arm] 126/66 Pulse Oximetry 81 L 92 90 Oxygen Delivery Me thod Room Air Nasal Cannula Nasal Cannula Oxygen Flow Rate 1 1 06/09/25 07:00 06/09/25 07:00 06/09/25 08:04 Temperature 98.2 F Pulse Rate [Pulse Oximeter] 75 75 Respiratory Rate 18 18 18 Blood Pressure [Ri ght Arm] 130/72 Pulse Oximetry 99 99 Oxygen Delivery Me thod Nasal Cannula Nasal Cannula Oxygen Flow Rate 1 1 06/09/25 11:00 Temperature 97.9 F Pulse Rate [Pulse Oximeter] 74 Respiratory Rate 16 Blood Pressure [Ri ght Arm] 120/68 Pulse Oximetry 96 Oxygen Delivery Me thod Nasal Cannula Oxygen Flow Rate 1
[2025-06-09] MEDS: LACTATED RINGERS 1000 ML 1,000 ML 100 ML IV ×2 (13:15→15:10)
--- NOTE | 2025-06-09 13:30 | PM.ORCN ---
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 She tells me there was a curb at the end of the garage and when she stepped back, her heel missed the curb and she started falling backward. She tried to catch her balance and thought she was going to be caught by the truck parked next to hers, but she hit the ground instead. She hit on left her arm and left hip, but states that she did not hit her head or lose consciousness. Upon presentation to [facility] x-rays were obtained revealed a displaced left femoral neck fracture. She was admitted to hospitalist and Orthopedics was consulted to consider evaluation and option of surgical fixation for femoral neck fracture. [facility] Medical History (Updated 06/08/25 @ 16:40 by Audrey Lazo MD) Asthma ?J45.909 - Unspecified asthma, uncomplicated (ICD-10) Atopic dermatitis ?L20.9 - Atopic dermatitis, unspecified (ICD-10) Hypertension ?I10 - Essential (primary) hypertension (ICD-10) Surgical History History of bunionectomy (11/2023) ?Z98.890 - Other specified postprocedural states (ICD-10) S/P panniculectomy (~2016) ?Z98.890 - Other specified postprocedural states (ICD-10) History of delivery (~1991) ?Z98.891 - History of uterine scar from previous surgery (ICD-10) History of strabismus surgery (~1970) ?Z98.890 - Other specified postprocedural states (ICD-10) History of hysterectomy (~2003) ?Z90.710 - Acquired absence of both cervix and uterus (ICD-10) H/O gastric sleeve (~2016) ?Z90.3 - Acquired absence of stomach [part of] (ICD-10) S/P LASIK surgery of both eyes (~2003) ?Z98.890 - Other specified postprocedural states (ICD-10) History of cholecystectomy ?Z90.49 - Acquired absence of other specified parts of digestive tract (ICD-10) Social History Narrative: Lives independently with . Denies tobacco use. Drinks 1 drink three times a week. Denies recreational drug use. What is your current living situation?: I presently have a place to live Problems where you live: no known problems Problems where you live details: N/A In the past 12 months, utilities in danger of being shut off: no In past 12 months, lack of transportation kept you from medical appts, meetings, work, or getting things needed for daily living: no In the past 12 mos, have been you worried that your food would run out before you had money to buy more?: never true In the past 12 mos, the food you bought just didn't last and you didn't have money to buy more?: never true Highest level of school completed/degree received: Associate degree: occupational, technical, vocational program Smoking Status: Never smoker How often do you have a drink containing alcohol: 2-3 times a week How many standard drinks containing alcohol do you have on a typical day: 1 or 2 How often do you have six or more drinks on one occasion: Never AUDIT-C Alcohol total score: 3 Non-prescribed substance use: denies use Caffeine: Yes (coffee) How often does anyone, including family, friends and others, physically hurt you: never How often does anyone, including family, friends and others, insult or talk down to you: never How often does anyone, including family, friends and others, threaten you with harm: never How often does anyone, including family, friends and others, scream or curse at you: never service: Yes Meds Home Medications and Allergies Home Medications ?Medication ?Instructions ?Recorded ?Confirmed ?Type gabapentin 300 mg capsule 600 mg PO BID 03/25/23 06/08/25 History lisinopril 20 mg tablet 20 mg PO HS 03/25/23 06/08/25 History albuterol sulfate 90 mcg/actuation 1 - 2 puff inhalation Q4H PRN 06/08/25 06/08/25 History aerosol inhaler wheezing dupilumab 300 mg/2 mL subcutaneous 300 mg subcut Q14D 06/08/25 06/08/25 History pen injector (Dupixent) epinephrine 0.3 mg/0.3 mL 0.3 mg IM .each time PRN allergies 06/08/25 06/08/25 History injection, auto-injector omeprazole 40 mg capsule,delayed 40 mg PO DAILY PRN 06/08/25 06/08/25 History release potassium chloride 10 mEq 10 meq PO DAILY 06/08/25 06/08/25 History tablet,extended release pramipexole 0.125 mg tablet 0.125 - 0.25 mg PO HS PRN 06/08/25 06/08/25 History rizatriptan 10 mg tablet 10 mg PO Q2H PRN 06/08/25 06/08/25 History Allergies Allergy/AdvReac Type Severity Reaction Status Date / Time amoxicillin (From Augmentin) Allergy Verified 06/08/25 09:42 bee venom protein (honey bee) Allergy Verified 06/08/25 09:42 clavulanic acid (From Allergy Verified 06/08/25 09:42 Augmentin) kiwi Allergy Verified 06/08/25 09:42 venom-wasp protein Allergy Verified 06/08/25 09:42 black raspberry flavor Allergy Uncoded 06/30/24 13:50 Ortho Exam Narrative Exam Narrative: She is alert and oriented x3. Lying supine hospital bed. Comfortable. No acute distress. Left hip exam shows no lacerations or abrasions. No ecchymosis. She is tender palpation on the left hip or with any hip or knee range of motion. 2+ DP PT pulse. Neurologic intact in the superficial and deep peroneal as well as plantar distribution to sensory light touch and motor function. Regarding left upper extremity, she does have tenderness to palpation around the radial head/neck. This is worse with pronation or supination or elbow flexion/extension. Neurologic intact in the radial, ulnar, and median nerves to sensory light touch and motor function. No lacerations abrasions noted. No significant pains about the right upper or right lower extremity otherwise. Const Vital Signs, click to edit/add: Vital Signs - 24 hr 06/08/25 13:45 06/08/25 15:33 06/08/25 15:33 Temperature 98.0 F Pulse Rate [Pulse Oximeter] 95 95 Respiratory Rate 16 16 Blood Pressure [Right Arm] 154/94 H Pulse Oximetry 99 97 Oxygen Delivery Method Room Air Oxygen Flow Rate 06/08/25 19:07 06/08/25 22:50 06/08/25 23:00 Temperature 98.2 F Pulse Rate [Pulse Oximeter] 101 H 89 Respiratory Rate 16 12 18 Blood Pressure [Right Arm] 130/66 Pulse Oximetry 94 95 Oxygen Delivery Method Room Air Oxygen Flow Rate 06/09/25 02:15 06/09/25 02:16 06/09/25 03:00 Temperature 98.6 F Pulse Rate [Pulse Oximeter] 75 Respiratory Rate 16 Blood Pressure [Right Arm] 126/66 Pulse Oximetry 81 L 92 90 Oxygen Delivery Method Room Air Nasal Cannula Nasal Cannula Oxygen Flow Rate 1 1 06/09/25 07:00 06/09/25 07:00 06/09/25 08:04 Temperature 98.2 F Pulse Rate [Pulse Oximeter] 75 75 Respiratory Rate 18 18 18 Blood Pressure [Right Arm] 130/72 Pulse Oximetry 99 99 Oxygen Delivery Method Nasal Cannula Nasal Cannula Oxygen Flow Rate 1 1 06/09/25 11:00 Temperature 97.9 F Pulse Rate [Pulse Oximeter] 74 Respiratory Rate 16 Blood Pressure [Right Arm] 120/68 Pulse Oximetry 96 Oxygen Delivery Method Nasal Cannula Oxygen Flow Rate 1 Results Labs Labs: Laboratory Results - last 48 hr 06/08/25 09:40 WBC 5.41 RBC 4.00 Hgb 12.4 Hct 37.8 MCV 95 MCH 31 MCHC 33 RDW Coeff of Filomena 12.4 Plt Count 194 Neut % (Auto) 54.7 Lymph % (Auto) 32.3 [place] % (Auto) 7.4 Eos % (Auto) 5.0 Baso % (Auto) 0.4 Neut # (Auto) 2.96 Lymph # (Auto) 1.75 [place] # (Auto) 0.40 Eos # (Auto) 0.27 Baso # (Auto) 0.02 Abs Immat Gran (auto) 0.01 Imm/Tot Granulo (auto) 0.2 Sodium 139 Potassium 4.5 Chloride 105 Carbon Dioxide 30 Anion Gap 4 L BUN 16 Creatinine 0.9 Estimated Creat Clear 71.21 Estimated GFR 74 Glucose 106 Calcium 9.1 Total Bilirubin 0.3 AST 40 H ALT 31 Alkaline Phosphatase 110 Total Protein 6.8 Albumin 3.9 Diagnostic results Additional Comments: The following radiographs were obtained at [facility] on 06/08/2025. These were ordered by different provider and reviewed by me. : Three-view left elbow - per the radiologist, no acute fractures avulsions. No significant effusions. There is a questionable radial lucency on the radial neck to my eyes that might represent a nondisplaced radial neck fracture. Three views of left wrist - severe thumb CMC osteoarthrosis. Otherwise, no acute fractures or avulsions. Three views right left hand - no acute fractures or avulsions or other traumatic events evident. Again visualizes the severe thumb CMC osteoarthrosis with [id number] joint space loss, osteophytosis, and subchondral sclerosis. Two views left hip - displaced left femoral neck fracture (subcapital) with adjacent moderate-severe osteoarthrosis with joint space narrowing commensurate to this degree. 3 well-circumscribed metallic objects appear to be seen overlying the right hip including some of the visualization otherwise. Assessment and Plan Assessment and plan (1) Fall: Problem comment: - Happened at work today Status: Acute Total time spent: Total time spent is greater than 50% in coordination of care (as documented) at patient's floor/unit and/or counseling patient: (2) Closed fracture of left hip: Problem comment: - Will need surgery tomorrow morning - CXR and EKG reviewed. Asthma quiescent. No further workup needed prior to surgery tomorrow morning. Will let her eat today and NPO after midnight. Status: Acute Total time spent: Total time spent is greater than 50% in coordination of care (as documented) at patient's floor/unit and/or counseling patient: (3) Hypertension: Problem comment: - Continue lisinopril Status: Chronic Total time spent: Total time spent is greater than 50% in coordination of care (as documented) at patient's floor/unit and/or counseling patient: (4) Asthma: Problem comment: - Inactive, has not had an exacerbation or used albuterol in years. Status: Chronic Total time spent: Total time spent is greater than 50% in coordination of care (as documented) at patient's floor/unit and/or counseling patient: (5) Osteoarthritis of left hip: Problem comment: mild - Continue gabapentin Status: Chronic Total time spent: Total time spent is greater than 50% in coordination of care (as documented) at patient's floor/unit and/or counseling patient: Plan I had a good discussion today with the patient. Helped her understand the pros and cons of both nonoperative or surgical intervention for this left displaced femoral neck fracture that is acute. As this is a work-related injury, we acknowledge that this re multiple months before she is fully restored to function. This includes local risks (e.g. Infection, wound healing issues, [aseptic loosening, instability, fracture]) as well as systemic risks (e.g. VTE, IN, stroke). After discussing the risks and benefits, she states understanding and would like to proceed with surgery for a left total hip arthroplasty. A total hip is suggested/recommended given her young age and the displaced femoral neck fracture. I was able to coordinate care with the anesthesia team. We anticipate being able to do surgery today, 06/09/2025.
[2025-06-09] MEDS: TRANEXAMIC ACID 100 MG/ML INJ 1000 MG IV (13:50)
--- NOTE | 2025-06-09 15:08 | P.ANES_ITS ---
Anesthesia Charges Start Date/Time Anesthesia Start Date: 06/09/25 Anesthesia Start Time: 13:09 Stop Date/Time Anesthesia Stop Date: 06/09/25 Anesthesia Stop Time: 16:21 Coding CPT Codes CPT Codes: ANESTH HIP ARTHROPLASTY - 92505 ([id number]) P2 - PATIENT W/MILD SYST DISEASE, QK - STAPLE PROCESSING MACHINE OPERATOR 2-4 CNCRNT ANES PROC, QX - PIPELINE MAINTENANCE SUPERVISOR SVC W/ MD MED DIRECTION
--- NOTE | 2025-06-09 15:08 | P.NB_ITS ---
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 Images saved: Yes Medications given in 5ml increments after negative aspiration: Ropivicaine %: 0.5 mL: 30 Needle gauge: 20 Precedex (mcg): 25 Patient tolerated procedure well: Yes Additional comments: Needle noted below psoas tendon needle noted adjacent to LFCN Block Charges Block Charge (with Pro Fee): Other Periph Nerve Block Use of Ultrasound Machine for Block: Yes- US Guidance/pain block
--- NOTE | 2025-06-09 15:08 | W.ANESCHARGE ---
Anesthesia Charges Start Date/Time Anesthesia Start Date: 06/09/25 Anesthesia Start Time: 13:09 Stop Date/Time Anesthesia Stop Date: 06/09/25 Anesthesia Stop Time: 16:21 Coding CPT Codes CPT Codes: ANESTH HIP ARTHROPLASTY - 24617 ([id number]) P2 - PATIENT W/MILD SYST DISEASE, QK - CREDIT REPRESENTATIVE 2-4 CNCRNT ANES PROC, QX - CONTRACT MANAGER SVC W/ MD MED DIRECTION
--- NOTE | 2025-06-09 15:23 | PM.ORPRC ---
Procedure Note Date of procedure: 06/09/25 Procedure: PREOPERATIVE DIAGNOSIS: 1. Left hip femoral neck fracture, displaced, acute POSTOPERATIVE DIAGNOSIS: 1. Left hip femoral neck fracture, displaced, acute PROCEDURE: 1. Left total hip arthroplasty for femoral neck fracture - anterior approach 2. Intraoperative fluoroscpy interpreted by Ayo Zuleta M.D. for intraoperative evaluation of total hip arthroplasty implants, femoral neck cut, and overall leg length and offset evaluation in real-time. Fluoroscopy time was 64.3 seconds. SURGEON: Ayo Zuleta MD. SMART ENERGY SPECIALIST: Khoi Dixon PA-C; YOAN Coronado - Of note, a skilled assistant golf course superintendent was critical for this case to aid in patient positioning, tissue retraction, limb manipulation/positioning, dislocation/relocation, patient safety, and closure. ANESTHESIA: Spinal anesthetic EBL: IMPLANTS: DePuy J&J uncemented total hip Emphasys cup size 52, hole eliminator, dual mobility neutral liner Actis stem, standard offset, size 5 +8.5 mm ceramic 28 mm inner head; 42 mm outer head head. COMPLICATIONS: None evident INDICATIONS: The patient is a pleasant 60-year-old female who has experienced severe left hip pain after a fall from a standing height yesterday, 06/08/2025. X-rays were obtained revealed a displaced left femoral neck fracture. Given some osteoarthritis as well as her youthful age, decision was made for a left total hip arthroplasty for femoral neck fracture. FINDINGS: Complete left femoral neck fracture (subcapital). Acute. Hemarthrosis encountered. Quality femoral diaphyseal bone otherwise. Mild osteoarthritis of the femoral head and acetabulum otherwise noted. DESCRIPTION OF PROCEDURE: Following a thorough discussion of risks, benefits, and alternatives consent was obtained and the left hip was marked. The patient was brought to the operating room and placed supine on the operating table. Induction of anesthesia was undertaken. 2 g IV Ancef and 1 g tranexamic acid was administered within 1 hr of incision preoperatively. Proper time-out was performed identifying proper patient, site, procedure. The operative extremity was prepped and draped in the appropriate sterile fashion using ChloraPrep after the patient was positioned on the Banner table with head in neutral alignment and all bony prominences well padded. C-arm fluoroscopic imaging was utilized to confirm proper pelvis rotation and position, and to get true AP films of both the contralateral left, and the affected left hip. This is for comparison. A longitudinal incision was made starting approximately 1 cm distal to the ASIS, and 2-3 cm lateral. The incision was extended distally aiming toward the fibular head. Sharp incision through skin and bovie cautery through the subcutaneous tissue allowed identification of the TFL fascia. This was sharply divided, and the fascia bluntly released from the muscle fibers as we dissected medial. Upon coming to the medial border, we were able to retract the TFL laterally, and penetrated the deeper fascia and identify the crossing circumflex vessels. These were ligated/cauterized. The rectus was elevated from the capsule, and retractors placed laterally and medially along the femoral neck to help with visualization of the capsule. We then performed an inverted T capsulotomy. The capsule was tagged for later repair. Hemarthrosis was encountered upon entering the capsule consistent with the fracture. Retractors were placed inside the capsule. The femoral neck was visualized after releasing medially down to the lesser trochanter, along the saddle laterally, and up onto the acetabulum. The femoral neck cut was freshened in line with our preoperative templating. This napkin ring and the head were removed and sized. We turned our attention to acetabular preparation. Initially, the labrum was resected from around the perimeter, the pulvinar was excised, allowing us to visualize the false wall. We started the reaming with a 46 mm reamer. This was medialized down to the true wall. We then enlarged our reamers sequentially up to the same size as the selected cup size. We trialed at the same size and found it to have an excellent fit. The selected cup was then opened, inserted, and impacted in line with the goal of 40-45? of abduction, and 20-25? of anteversion. This was confirmed on C-arm fluoroscopic imaging to be in the appropriate/goal position. Once the cup was placed we placed a trial cup liner and eventually trial reductions were performed. Attention was turned to the femoral preparation. The limb was extended, externally rotated, and adducted. The posteromedial capsule was released, as retractors were placed allowing excellent access to the proximal femur. Initially a box builder was followed by canal finder followed by various broaches. We broached sequentially up to size noted above, found it to have excellent rotational control, and trialing various heads and necks, revealed that appropriate neck offset, and the above noted head size provided the greatest stability, and advent of length, and offset. C-arm fluoroscopic imaging confirmed position of the stem, as well as leg lengths, which were compared with the pre procedure all fluoroscopic images. Trial implants were removed, the real acetabular component shell for the dual mobility and the real femoral stem were inserted. The dual mobility 28 mm ceramic head and 42 mm polyethylene head were connected consistent with the protocol. After reducing, the leg was placed through range of motion and stability was confirmed anterior, posterior, and lateral. A 3 min Betadine soak was then performed, and thorough irrigation with normal saline followed. Closure of the capsule was performed with #1 PDS. Bleeding was confirmed to be controlled at this stage, and the TFL fascia was closed with #0 strata fix. Subcutaneous, and subcuticular closure was performed with 2-0 Stratafix and 4-0 Stratafix, respectively. Dressings were applied, and the patient was awoken from anesthesia and transferred the PACU in stable condition. A skilled assistant golf course superintendent was critical for this case to aid in patient positioning, tissue retraction, proximal femur exposure, limb manipulation/positioning, dislocation/relocation, patient safety, and closure. PLAN: 1. Weight bear as tolerated operative extremity. 2. 23 hr perioperative antibiotics. 3. Ice. 4. PT/OT consults for ambulation assistance/mobility education. 5. Social work consult for discharge planning. 6. DVT prophylaxis with at SCDs and Xarelto x5 days followed by aspirin for a total of 1 month.
--- NOTE | 2025-06-09 15:57 | SUR.OPER ---
THIS CORPORATE FINANCIAL ANALYST PLACED A STRIP OF XEROFORM COVERED WITH A 4x4 MEPILEX ON EACH BUTTOCK (DUE TO PRESSURE SORES STARTING ON THOSE AREAS).
--- NOTE | 2025-06-09 16:24 | P.ANES_ITS ---
Anesthesia Charges Start Date/Time Anesthesia Start Date: 06/09/25 Anesthesia Start Time: 13:09 Stop Date/Time Anesthesia Stop Date: 06/09/25 Anesthesia Stop Time: 16:21 Coding CPT Codes CPT Codes: ANESTH HIP ARTHROPLASTY - 54789 ([id number]) QK - SILO PAINTER 2-4 CNCRNT ANES PROC, QX - IT SALES CONSULTANT SVC W/ MD MED DIRECTION, P3 - PATIENT W/SEVERE SYS DISEASE
--- NOTE | 2025-06-09 16:24 | W.ANESCHARGE ---
Anesthesia Charges Start Date/Time Anesthesia Start Date: 06/09/25 Anesthesia Start Time: 13:09 Stop Date/Time Anesthesia Stop Date: 06/09/25 Anesthesia Stop Time: 16:21 Coding CPT Codes CPT Codes: ANESTH HIP ARTHROPLASTY - 28314 ([id number]) QK - CLINICAL INFORMATICS PHYSICIAN 2-4 CNCRNT ANES PROC, QX - KIER TENDER SVC W/ MD MED DIRECTION, P3 - PATIENT W/SEVERE SYS DISEASE
--- NOTE | 2025-06-09 16:39 | CRLHL7_ITS ---
For Patients: As a result of the Cures Act, medical imaging exams and procedure reports are released immediately into your electronic medical record. You may view this report before your referring provider. If you have questions, please contact your health care provider. Indication: Postop Technique: AP hip centered pelvis and lateral view left hip Findings/Impression: Hardware from a left bipolar hip arthroplasty is in satisfactory position. Bone alignment is normal. No sign of acute fracture. Postop changes are within normal limits. Dictated by Ciaran Quniones MD @ 06/10/2025 9:44:33 AM (Electronically Signed)
[2025-06-09] MEDS: OMEPRAZOLE 20 MG CAPSULE DR 40 MG PO (18:38)
[2025-06-09] MEDS: ACETAMINOPHEN 325 MG TABLET 650 MG PO (18:38)
--- NOTE | 2025-06-09 19:00 | PC.NURSE ---
Progress Note Pt a/o x4 and cooperative with cares. pt reported pain 7-10/10 throughout shift,pt given prn Dilaudid. Pt taken to surgery from [id number], dressing dry and intact, BLE weakness all other CMS intact. Pt has external cath in place. Pt tolerating PO intake.
[2025-06-09] MEDS: CEFAZOLIN 2 GM in 0.9 % SODIUM CHLORIDE Mini-bag 100 ML IVPB (19:57)
[2025-06-09] MEDS: POTASSIUM CHLORIDE 10 MEQ CAPSULE ER PO (22:07)
[2025-06-09] MEDS: LACTATED RINGERS 1000 ML 1,000 ML 75 ML IV (22:57)
[2025-06-10 03:00] VITALS: BP 116/56; PULSE 82; RESP 18; TEMP 36.4; O2SAT 95
[2025-06-10] MEDS: ACETAMINOPHEN 325 MG TABLET 650 MG PO ×2 (03:13→09:40)
[2025-06-10] MEDS: CEFAZOLIN 2 GM in 0.9 % SODIUM CHLORIDE Mini-bag 100 ML IVPB ×2 (03:34→12:06)
[2025-06-10] MEDS: GABAPENTIN 300 MG CAPSULE 600 MG PO (05:08)
--- NOTE | 2025-06-10 06:55 | PC.NURSE ---
End of Shift Note 262? ? Patient?tolerated activity after surgery well. Moves assist of 1, slowly, gait belt and walker.?Needs sling for left arm during the day. Surgical dressing dry and intact.?Voiding and drinking appropriately. Saline locked.?Regular diet.?Uses call light?appropriately. Call light within reach.
[2025-06-10 07:03] LABS: Hematocrit* 33.1 % (33.0-51.0); Hemoglobin* 10.8 gm/dL (12.0-16.0); Mean Corpuscular HGB Conc 33 gm/dL (32-36); Mean Corpuscular Hemoglobin 31 pg (26-34); Mean Corpuscular Volume 95 fL (80-100); Red Blood Count* 3.48 m/uL (4.00-5.20); White Blood Count* 9.87 K/uL (4.50-11.00)
[2025-06-10 07:05] LABS: Slide Review Reflex No
[2025-06-10 07:15] LABS: Chloride* 101 mmol/L (96-114); Sodium* 135 mmol/L (135-149)
[2025-06-10 07:16] LABS: Potassium* 4.3 mmol/L (3.6-5.1)
[2025-06-10 07:19] LABS: Anion Gap 3 mEq/L (7-15); Blood Urea Nitrogen* 15 mg/dL (7-30); Calcium* 8.5 mg/dL (8.4-10.6); Carbon Dioxide* 31 mmol/L (20-32); Creatinine* 0.7 mg/dL (0.5-1.5); Est. Creatinine Clearance* 91.55; Estimated Glomerular Filt Rate 100 ml/min; Glucose* 125 mg/dL (60-115)
[2025-06-10 08:01] VITALS: BP 102/56; PULSE 79; RESP 18; TEMP 36.7; O2SAT 97
[2025-06-10 08:03] VITALS: RESP 18; O2SAT 97
--- NOTE | 2025-06-10 08:27 | PM.IMPN1 ---
Assessment and Plan Assessment and plan (1) Closed fracture of left hip: Problem comment: - S/P ORIF 06/09. - Left hip femoral neck fracture, displaced -Weight bear as tolerated operative extremity. - PT/OT consults for ambulation assistance/mobility education. - Social work consult for discharge planning. - DVT prophylaxis with at SCDs and Xarelto x5 days followed by aspirin for a total of 1 month. Status: Acute (2) Fall: Problem comment: - Happened at work Status: Acute (3) Hypertension: Problem comment: - Continue lisinopril Status: Chronic (4) Asthma: Problem comment: - Inactive, has not had an exacerbation or used albuterol in years. Status: Chronic (5) Osteoarthritis of left hip: Problem comment: mild - Continue gabapentin Status: Chronic Total Time Spent Total Time Spent: Today I spent 50 minutes seeing the patient, reviewing Expanse and EPIC notes/diagnostics, discussing the care plan with our care time that includes social work, PT/OT, pharmacy, RT, group home and documenting my impressions and plan in the medical record. Subjective Interval history: No acute events overnight. Pt was c/o pain and given pain meds. Exam Narrative: Exam Narrative: Physical exam GENERAL: Comfortable, no acute distress. HEAD AND NECK: Atraumatic, normocephalic CARDIOVASCULAR: RRR. Normal S1, S2. No murmurs. RESPIRATORY: Clear to auscultation B/L. Good air entry B/L. No wheezes or rhonchi. NEUROLOGY: Alert, awake, oriented X 3. Normal speech. PSYCH: Normal mood, normal affect. Const: Vital Signs, click to edit/add: Vital Signs - 24 hr 06/09/25 11:00 06/09/25 16:20 06/09/25 16:25 Temperature 97.9 F 97 F L Pulse Rate 75 77 Pulse Rate [Pulse Oximeter] 74 Respiratory Rate 16 14 14 Blood Pressure 131/76 132/67 Blood Pressure [Ri ght Arm] 120/68 Pulse Oximetry 96 93 95 Oxygen Delivery Me thod Nasal Cannula Nasal Cannula Nasal Cannula Oxygen Flow Rate 1 2 2 06/09/25 16:30 06/09/25 16:35 06/09/25 16:40 Temperature Pulse Rate 75 81 73 Pulse Rate [Pulse Oximeter] Respiratory Rate 14 14 14 Blood Pressure 130/63 112/73 122/74 Blood Pressure [Ri ght Arm] Pulse Oximetry 97 97 98 Oxygen Delivery Me thod Nasal Cannula Nasal Cannula Nasal Cannula Oxygen Flow Rate 2 2 2 06/09/25 16:45 06/09/25 16:50 06/09/25 17:00 Temperature 97 F L 95.8 F L Pulse Rate 82 79 76 Pulse Rate [Pulse Oximeter] Respiratory Rate 14 14 14 Blood Pressure 126/92 H 138/73 126/75 Blood Pressure [Ri ght Arm] Pulse Oximetry 97 97 96 Oxygen Delivery Me thod Nasal Cannula Nasal Cannula Room Air Oxygen Flow Rate 2 2 06/09/25 17:15 06/09/25 17:30 06/09/25 17:45 Temperature 95.8 F L 97.8 F 97.8 F Pulse Rate 77 80 80 Pulse Rate [Pulse Oximeter] Respiratory Rate 16 16 12 Blood Pressure 137/86 137/77 137/78 Blood Pressure [Ri ght Arm] Pulse Oximetry 96 97 97 Oxygen Delivery Me thod Room Air Nasal Cannula Nasal Cannula Oxygen Flow Rate 1 1 06/09/25 18:06 06/09/25 18:36 06/09/25 19:00 Temperature 97.8 F Pulse Rate 80 83 93 Pulse Rate [Pulse Oximeter] Respiratory Rate 14 14 16 Blood Pressure 134/74 126/61 109/69 Blood Pressure [Ri ght Arm] Pulse Oximetry 96 96 94 Oxygen Delivery Me thod Room Air Nasal Cannula Oxygen Flow Rate 1 06/09/25 19:00 06/09/25 20:00 06/09/25 21:00 Temperature 97.8 F 98.6 F 98.6 F Pulse Rate 85 78 Pulse Rate [Pulse Oximeter] 93 Respiratory Rate 16 16 18 Blood Pressure 111/53 L 102/54 L Blood Pressure [Ri ght Arm] 109/69 Pulse Oximetry 94 96 94 Oxygen Delivery Me thod Nasal Cannula Room Air Oxygen Flow Rate 1 06/09/25 22:00 06/09/25 22:41 06/09/25 22:43 Temperature Pulse Rate 72 Pulse Rate [Pulse Oximeter] 94 Respiratory Rate 18 Blood Pressure 102/50 L Blood Pressure [Ri ght Arm] Pulse Oximetry 94 94 Oxygen Delivery Me thod Room Air Room Air Oxygen Flow Rate 06/09/25 23:00 06/10/25 03:00 06/10/25 08:01 Temperature 97.6 F 98.1 F Pulse Rate 67 82 79 Pulse Rate [Pulse Oximeter] Respiratory Rate 16 18 18 Blood Pressure 98/50 L 116/56 L 102/56 L Blood Pressure [Ri ght Arm] Pulse Oximetry 97 95 97 Oxygen Delivery Me thod Room Air Room Air Room Air Oxygen Flow Rate 06/10/25 08:03 Temperature Pulse Rate Pulse Rate [Pulse Oximeter] Respiratory Rate 18 Blood Pressure Blood Pressure [Ri ght Arm] Pulse Oximetry 97 Oxygen Delivery Me thod Room Air Oxygen Flow Rate Labs Labs: Laboratory Results - last 24 hr 06/10/25 06:25 WBC 9.87 RBC 3.48 L Hgb 10.8 L Hct 33.1 MCV 95 MCH 31 MCHC 33 Plt Count 163 Sodium 135 Potassium 4.3 Chloride 101 Carbon Dioxide 31 Anion Gap 3 L BUN 15 Creatinine 0.7 Estimated Creat Clear 91.55 Estimated GFR 100 Glucose 125 H Calcium 8.5 Magnesium 1.9
[2025-06-10] MEDS: RIVAROXABAN 10 MG TABLET PO (09:40)
[2025-06-10] MEDS: SODIUM CHLORIDE 0.9 % (FLUSH) 10 ML SYRINGE 5 ML IVF (09:41)
--- NOTE | 2025-06-10 10:04 | PM.ORPN ---
Subjective Subjective Date Seen: 06/10/25 Principal diagnosis: POD1 left MATILDE-AA for displaced femoral neck fracture Interval history: Patient reports doing okay. Hip is painful. Reports poor appetite. Mildly nauseous. Also reports left elbow discomfort, and left forearm discomfort. Mild swelling to the forearm. No acute events over night. Pain managed with scheduled and PRN medications, ice. DVT prophylaxis: Rivaroxaban, SCDs, walking. Denies fevers, chills, aches, N/V, CP, SOB/DENSON, or lightheadedness. Ortho Exam Narrative Exam Narrative: Left lower extremity: -Patient appears comfortable in recliner; no apparent acute distress. Eating breakfast -Alert and oriented times 3 -Operative hip swollen; soft tissues supple; no obvious erythema. Ecchymosis minimal. Warmth appropriate -Surgical dressing clean, dry, intact; no obvious drainage, no erythematous streaking peripheral to the bandage -Bilateral calves soft and supple; no significant swelling, edema, tenderness, erythema, discoloration, warmth, or palpable cords -2+ DP/PT pulses, intact dermatomes and myotomes distally (5/5 strength). No numbness about the lateral femoral cutaneous nerve distribution. Left elbow/upper extremity: No erythema, ecchymosis, notable swelling or fullness No gross deformity elbow Tender to palpation radial head/neck; no crepitus Nontender medial/lateral epicondyle Nontender olecranon Nontender MCL/LCL Active ROM guarded from 5-110 degrees Pronation 75?, supination 85?, also guarded with pain radial head/neck Moderate pain to palpation through the mid forearm without crepitus upon gentle three-point bend No varus and valgus elbow stability tested 2+ radial ulnar pulses, pink, warm digits with appropriate capillary fill; intact dermatomes and myotomes distally including radial, ulnar, and median nerve distributions Const Vital Signs, click to edit/add: Vital Signs - 24 hr 06/09/25 11:00 06/09/25 16:20 06/09/25 16:25 Temperature 97.9 F 97 F L Pulse Rate 75 77 Pulse Rate [Pulse Oximeter] 74 Respiratory Rate 16 14 14 Blood Pressure 131/76 132/67 Blood Pressure [Right Arm] 120/68 Pulse Oximetry 96 93 95 Oxygen Delivery Method Nasal Cannula Nasal Cannula Nasal Cannula Oxygen Flow Rate 1 2 2 06/09/25 16:30 06/09/25 16:35 06/09/25 16:40 Temperature Pulse Rate 75 81 73 Pulse Rate [Pulse Oximeter] Respiratory Rate 14 14 14 Blood Pressure 130/63 112/73 122/74 Blood Pressure [Right Arm] Pulse Oximetry 97 97 98 Oxygen Delivery Method Nasal Cannula Nasal Cannula Nasal Cannula Oxygen Flow Rate 2 2 2 06/09/25 16:45 06/09/25 16:50 06/09/25 17:00 Temperature 97 F L 95.8 F L Pulse Rate 82 79 76 Pulse Rate [Pulse Oximeter] Respiratory Rate 14 14 14 Blood Pressure 126/92 H 138/73 126/75 Blood Pressure [Right Arm] Pulse Oximetry 97 97 96 Oxygen Delivery Method Nasal Cannula Nasal Cannula Room Air Oxygen Flow Rate 2 2 06/09/25 17:15 06/09/25 17:30 06/09/25 17:45 Temperature 95.8 F L 97.8 F 97.8 F Pulse Rate 77 80 80 Pulse Rate [Pulse Oximeter] Respiratory Rate 16 16 12 Blood Pressure 137/86 137/77 137/78 Blood Pressure [Right Arm] Pulse Oximetry 96 97 97 Oxygen Delivery Method Room Air Nasal Cannula Nasal Cannula Oxygen Flow Rate 1 1 06/09/25 18:06 06/09/25 18:36 06/09/25 19:00 Temperature 97.8 F Pulse Rate 80 83 93 Pulse Rate [Pulse Oximeter] Respiratory Rate 14 14 16 Blood Pressure 134/74 126/61 109/69 Blood Pressure [Right Arm] Pulse Oximetry 96 96 94 Oxygen Delivery Method Room Air Nasal Cannula Oxygen Flow Rate 1 06/09/25 19:00 06/09/25 20:00 06/09/25 21:00 Temperature 97.8 F 98.6 F 98.6 F Pulse Rate 85 78 Pulse Rate [Pulse Oximeter] 93 Respiratory Rate 16 16 18 Blood Pressure 111/53 L 102/54 L Blood Pressure [Right Arm] 109/69 Pulse Oximetry 94 96 94 Oxygen Delivery Method Nasal Cannula Room Air Oxygen Flow Rate 1 06/09/25 22:00 06/09/25 22:41 06/09/25 22:43 Temperature Pulse Rate 72 Pulse Rate [Pulse Oximeter] 94 Respiratory Rate 18 Blood Pressure 102/50 L Blood Pressure [Right Arm] Pulse Oximetry 94 94 Oxygen Delivery Method Room Air Room Air Oxygen Flow Rate 06/09/25 23:00 10/02/25 03:00 06/10/25 08:01 Temperature 97.6 F 98.1 F Pulse Rate 67 82 79 Pulse Rate [Pulse Oximeter] Respiratory Rate 16 18 18 Blood Pressure 98/50 L 116/56 L 102/56 L Blood Pressure [Right Arm] Pulse Oximetry 97 95 97 Oxygen Delivery Method Room Air Room Air Room Air Oxygen Flow Rate 06/10/25 08:03 Temperature Pulse Rate Pulse Rate [Pulse Oximeter] Respiratory Rate 18 Blood Pressure Blood Pressure [Right Arm] Pulse Oximetry 97 Oxygen Delivery Method Room Air Oxygen Flow Rate Assessment and Plan Assessment and plan (1) Closed fracture of left hip: Problem details: - S/P ORIF 06/09. - Left hip femoral neck fracture, displaced -Weight bear as tolerated operative extremity. - PT/OT consults for ambulation assistance/mobility education. - Social work consult for discharge planning. - DVT prophylaxis with SCDs and Xarelto x5 days followed by aspirin twice daily for a total of 1 month. Status: Acute (2) Fall: Problem details: - Happened at work Status: Acute (3) Fracture of radial neck, left, closed: Problem details: -Nondisplaced -sling for comfort Status: Acute (4) Hypertension: Problem details: - Continue lisinopril Status: Chronic (5) Asthma: Problem details: - Inactive, has not had an exacerbation or used albuterol in years. Status: Chronic Plan - Complete 23 hour perioperative antibiotics. - PT/OT consult for education and assistance. - Social work consult for discharge planning - Prescribed analgesics as needed - DVT prophylaxis: Rivaroxaban, walking, and SCDs - Regarding left elbow/UE: No concern for wrist fracture or form fracture. We do appreciate the nondisplaced radial neck fracture. This is supported by exam and radiographs. Sling for comfort. Encouraged gentle active and passive motion of her elbow as tolerated including pronation and supination, with goal of maintaining full motion without resistance. No lifting beyond coffee cup in weight left upper extremity. No significant push or pull with left upper extremity. She should not apply significant weight through left upper extremity when using the walker. - Anticipation is for discharge to home with today 06/10/25 if the patient remains medically stable, pain is controlled, and they are safe with mobilization. Of note, platform walker will not be conducive due to her left radial neck fracture.
[2025-06-10 12:07] VITALS: BP 120/67; PULSE 92; RESP 18; TEMP 36.7; O2SAT 97
[2025-06-10 13:34] VITALS: O2SAT 97
--- NOTE | 2025-06-10 13:39 | P.DS_ITS ---
DS: Providers Provider Date Seen: 06/10/25 Date of admission: 06/08/25 11:45 Primary care physician: Fide Choudhary PA-C Admitting Clinician: Audrey Lazo MD Consults: 06/08/25 12:45 Consult to Physician [CONS] Routine Comment: Consulting Provider: Leobardo Darby Has provider been notified: Yes 06/09/25 17:28 Consult to Occupational Therapy [CONS] Routine Comment: Reason(s) for OT Consult:: Evaluate and Treat Any Restrictions?:: See Comment Comment: evaluate and treat Consult to Physical Therapy [CONS] Routine Comment: Reason(s) for PT Consult:: Evaluate and Treat Any Restrictions?:: Wt Bearing as Tolerated Attending Physician on discharge: Audrey Lazo MD DS: Diagnosis Discharge Diagnosis (1) Closed fracture of left hip: Status: Acute Problem details: - S/P ORIF 06/09. - Left hip femoral neck fracture, displaced -Weight bear as tolerated operative extremity. - PT/OT consults for ambulation assistance/mobility education. - Social work consult for discharge planning. - DVT prophylaxis with SCDs and Xarelto x5 days followed by aspirin twice daily for a total of 1 month. - 06/10: D/w the pt and the benefits of a short rehab stay but they declined stating that they prefer home w/ outpt PT/OT (mainly d/t insurance limitations). (2) Fall: Status: Acute Problem details: - Happened at work (3) Fracture of radial neck, left, closed: Status: Acute Problem details: -Nondisplaced -sling for comfort (4) Hypertension: Status: Chronic Problem details: - Continue lisinopril (5) Asthma: Status: Chronic Problem details: - Inactive, has not had an exacerbation or used albuterol in years. DS: Summary Hospital Course Hospital Course: pt presented after a fall and was found ti have a lt hip fracture and a lt radial neck fracture. Orthopedics consulted and performed an ORIF of the lt hip. PT/ OT consulted, discussed /w the pt and the benefits of a short rehab stay but they declined stating that they prefer home w/ outpt PT/OT (mainly d/t insurance limitations). Status at Discharge Functional status at discharge: uses cane/walker Overall status at discharge: patient is progressing back to baseline Time Spent with Patient Time attestation: Total time spent providing and/or coordinating discharge services: Exam Narrative: Exam Narrative: Physical exam GENERAL: Comfortable, no acute distress. Lt UE sling. HEAD AND NECK: Atraumatic, normocephalic CARDIOVASCULAR: RRR. Normal S1, S2. No murmurs. RESPIRATORY: Clear to auscultation B/L. Good air entry B/L. No wheezes or rhonchi. NEUROLOGY: Alert, awake, oriented X 3. Normal speech. PSYCH: Normal mood, normal affect. Const: Vital Signs, click to edit/add: Vital Signs - 24 hr 06/09/25 16:20 06/09/25 16:25 06/09/25 16:30 Temperature 97 F L Pulse Rate 75 77 75 Pulse Rate [Pulse Oximeter] Respiratory Rate 14 14 14 Blood Pressure 131/76 132/67 130/63 Blood Pressure [Ri ght Arm] Pulse Oximetry 93 95 97 Oxygen Delivery Me thod Nasal Cannula Nasal Cannula Nasal Cannula Oxygen Flow Rate 2 2 2 06/09/25 16:35 06/09/25 16:40 06/09/25 16:45 Temperature Pulse Rate 81 73 82 Pulse Rate [Pulse Oximeter] Respiratory Rate 14 14 14 Blood Pressure 112/73 122/74 126/92 H Blood Pressure [Ri ght Arm] Pulse Oximetry 97 98 97 Oxygen Delivery Me thod Nasal Cannula Nasal Cannula Nasal Cannula Oxygen Flow Rate 2 2 2 06/09/25 16:50 06/09/25 17:00 06/09/25 17:15 Temperature 97 F L 95.8 F L 95.8 F L Pulse Rate 79 76 77 Pulse Rate [Pulse Oximeter] Respiratory Rate 14 14 16 Blood Pressure 138/73 126/75 137/86 Blood Pressure [Ri ght Arm] Pulse Oximetry 97 96 96 Oxygen Delivery Me thod Nasal Cannula Room Air Room Air Oxygen Flow Rate 2 06/09/25 17:30 06/09/25 17:45 06/09/25 18:06 Temperature 97.8 F 97.8 F Pulse Rate 80 80 80 Pulse Rate [Pulse Oximeter] Respiratory Rate 16 12 14 Blood Pressure 137/77 137/78 134/74 Blood Pressure [Ri ght Arm] Pulse Oximetry 97 97 96 Oxygen Delivery Me thod Nasal Cannula Nasal Cannula Room Air Oxygen Flow Rate 1 1 06/09/25 18:36 06/09/25 19:00 06/09/25 19:00 Temperature 97.8 F 97.8 F Pulse Rate 83 93 Pulse Rate [Pulse Oximeter] 93 Respiratory Rate 14 16 16 Blood Pressure 126/61 109/69 Blood Pressure [Ri ght Arm] 109/69 Pulse Oximetry 96 94 94 Oxygen Delivery Me thod Nasal Cannula Nasal Cannula Oxygen Flow Rate 1 1 06/09/25 20:00 06/09/25 21:00 06/09/25 22:00 Temperature 98.6 F 98.6 F Pulse Rate 85 78 72 Pulse Rate [Pulse Oximeter] Respiratory Rate 16 18 18 Blood Pressure 111/53 L 102/54 L 102/50 L Blood Pressure [Ri ght Arm] Pulse Oximetry 96 94 94 Oxygen Delivery Me thod Room Air Room Air Oxygen Flow Rate 06/09/25 22:41 06/09/25 22:43 06/09/25 23:00 Temperature Pulse Rate 67 Pulse Rate [Pulse Oximeter] 94 Respiratory Rate 16 Blood Pressure 98/50 L Blood Pressure [Ri ght Arm] Pulse Oximetry 94 97 Oxygen Delivery Me thod Room Air Room Air Oxygen Flow Rate 06/10/25 03:00 06/10/25 08:01 06/10/25 08:03 Temperature 97.6 F 98.1 F Pulse Rate 82 79 Pulse Rate [Pulse Oximeter] Respiratory Rate 18 18 18 Blood Pressure 116/56 L 102/56 L Blood Pressure [Ri ght Arm] Pulse Oximetry 95 97 97 Oxygen Delivery Me thod Room Air Room Air Room Air Oxygen Flow Rate 06/10/25 12:07 06/10/25 13:34 Temperature 98.1 F Pulse Rate 92 Pulse Rate [Pulse Oximeter] Respiratory Rate 18 Blood Pressure 120/67 Blood Pressure [Ri ght Arm] Pulse Oximetry 97 97 Oxygen Delivery Me thod Room Air Oxygen Flow Rate DS: Data Data Completed and Pending Labs on day of discharge: Labs from last 24 hours 06/10/25 06:25 WBC 9.87 RBC 3.48 L Hgb 10.8 L Hct 33.1 MCV 95 MCH 31 MCHC 33 Plt Count 163 Sodium 135 Potassium 4.3 Chloride 101 Carbon Dioxide 31 Anion Gap 3 L BUN 15 Creatinine 0.7 Estimated Creat Clear 91.55 Estimated GFR 100 Glucose 125 H Calcium 8.5 Magnesium 1.9 Blood Type A Positive Antibody Screen NEGATIVE Discharge Plan Discharge Disposition: Home w/ Parent or Adult Date of Admission: 06/08/25 11:45 Attending Provider on Discharge: Kitty Aldrich Consulting Providers: Ayo Zuleta Primary Care Provider: Fide Choudhary Condition: Improved Anticipated Discharge Date/Time: 06/10/25 13:34 Discharge Medications: New aspirin 81 mg tablet,delayed release (DR/EC) 81 mg PO BID Qty: 50 0RF Rx Instructions: Medication to help prevent blood clots postoperatively; take TWICE daily. acetaminophen 500 mg capsule 500 - 1,000 mg PO Q6H MDD 4000mg PRNQty: 100 0RF sennosides-docusate sodium [Senna-S] 8.6-50 mg tablet 1 - 4 tab-cap PO BID PRN (Reason: constipation) Qty: 60 0RF Rx Instructions: Hold medication if experiencing loose stools. oxycodone 5 mg tablet 2.5 - 5 mg PO Q4-6H MDD 6 PRN (Reason: pain) Qty: 42 0RF Rx Instructions: Take as needed for postop pain: 2.5mg mild pain, 5mg moderate-severe pain; wean as tolerated. rivaroxaban 10 mg tablet 10 mg PO DAILY Qty: 4 0RF Rx Instructions: Medication for deep vein clot prevention post surgery. Complete this medication before starting Aspirin. oxycodone 5 mg tablet 5 mg PO Q4-8H PRN (Reason: pain) Qty: 40 0RF Continued lisinopril 20 mg tablet 20 mg PO HS gabapentin 300 mg capsule 600 mg PO BID Patient Comments: 4:30 am and 4:30pm Dupixent Pen 300 mg/2 mL pen injector 300 mg SUBCUT Q14D epinephrine 0.3 mg/0.3 mL auto-injector 0.3 mg IM .each time PRN (Reason: allergies) omeprazole 40 mg capsule,delayed release(DR/EC) 40 mg PO DAILY PRN pramipexole 0.125 mg tablet 0.125 - 0.25 mg PO HS PRN albuterol sulfate 90 mcg/actuation HFA aerosol inhaler 1 - 2 puff INHALATION Q4H PRN (Reason: wheezing) rizatriptan 10 mg tablet 10 mg PO Q2H PRN potassium chloride 10 mEq tablet extended release 10 meq PO DAILY Discharge Orders: Discharge Order (Routine); Ordered 06/10/25 Ordered By: Kitty Aldrich Patient Education: Acetaminophen (By mouth), Aspirin (By mouth), Laxative, Stimulant (By mouth), Oxycodone, Rapid Release (By mouth), Rivaroxaban (By mouth), Anterior Hip Replacement (DC) Additional Instructions: - you need to follow-up with your primary care physician in 1-2 weeks and discuss your progress regarding mobility. - follow-up with orthopedic doctor as instructed. Activity Level: Activity as Tolerated and Weight Bearing as Tolerated Activity Detail: Wound: ? Do not remove original dressing; we will remove this at first postop visit. Only remove dressing if integrity is in question. ? No immersing wound in water; showering okay; light scrub with your hand and body soap, rinse, dab dry ? Sutures are under the skin, will dissolve; do not scrub the wound or apply ointments/lotions ? Call our office with any redness that streaks, excessive drainage from the wound, or wound gapping. Ice/Elevate: ? Ice as needed for swelling and discomfort; elevate extremity frequently above the heart. Motion/Exercise: ? Weight bear as tolerated operative extremity (walker/cane for ambulation assistance as needed) ? Per PT/OT. ? Straight leg raises daily: 1-2 sets of 10 reps -Do not weightbear through the left upper extremity. Sling for comfort. Encouraged gentle elbow ROM including pronation and supination as tolerated. No lifting beyond coffee cup in weight left upper extremity. Pain Medications: ? Oral narcotic as prescribed. Wean as tolerated. Blood Clot Prevention (DVT): ? Medication: 5 days of xarelto, followed by 25 days 81 mg aspirin by mouth twice daily (1 month total treatment) Driving: ? Do not drive while taking narcotic pain medication ? Anticipate 4-6 weeks no driving if operative leg is driving leg Dental: ? No elective dental work for 3 months post-op. If there is an urgent/emergent dental need, contact our office for an antibiotic prescription. Smoking/Alcohol: ? Do not smoke; do no drink alcohol especially when taking postoperative oral narcotic medication Seek Care from you Primary Care Provider if you experience the following issues in the postoperative phase and beyond: ? Bacterial infections such as: pneumonia, bacterial skin infection (cellulitis), UTI, high fever, chills unrelated to the operative body part - call your primary care physician urgently for treatment in hopes to protect your health and the metal implant. Referrals: ? PT, OT per patient preference - evaluate & treat total hip arthroplasty protocol, anterior approach (gait training, ROM, ADLs) Vaccines: ? No vaccines until 4-6 weeks postop If there are any acute concerns regarding your surgery, please call our orthopedic clinic ([phone]) Discharge Diet: Regular Follow Up Appointments: Fide Choudhary PA-C [Primary Care Provider, Family Practice] - 06/23/25 9:10 pm Referral Note: [facility] for hospital follow-up Khoi Dixon PA-C [Physician Health Commissioner, Orthopedics] - 06/18/25 10:10 am Referral Note: [facility] for follow-up Forms: [facility] Info Instructions
--- NOTE | 2025-06-10 15:26 | PC.NURSE ---
Pt discharged @ 1510 via wheelchair. Accompanied by . Going back to home. IV removed. Discharge forms signed with Pt reporting understanding. Final room check complete. Hemiwalker brought home with Pt. Pain managed. Dressing remains CDI, CMS intact.
--- NOTE | 2025-06-10 15:38 | PC.SOCIAL ---
Discharge planning. met multiple times with pt and regarding discharge plans. Pt plans to return home with her providing assistance as needed and is not requesting placement in a facility. Pt states she was injured while working and that her HR department has requested a copy of her medical chart. Provided pt with form and information on how to request a copy of her medical chart. Provided and pt with information requested on the physicians providing care as this information was needed for a form was filling out for workman's comp. Pt and were appreciative of information provided and are aware of how to contact social services counselor if additional information on community resources is needed.
== END 2025-06-10 15:10 | disposition home or self-care (01) | DRG 301 ==
LOC: ED 11:13 → MEDSURG 11:45
PROVIDERS: Orthopaedic Surgery Sports Medicine; Student in an Organized Health Care Education/Training Program; Admitting Provider Family Medicine; Emergency Provider Family Medicine; PCP Physician Assistant Medical; Visit Provider Family Medicine
PROC: 0SRB03A Replacement of Left Hip Joint with Ceramic Synthetic Substitute, Uncemented, Open Approach (ICD-10-PCS; CPT 27130; principal; 2025-06-09 13:00)
DX: S72.042A Displaced fracture of base of neck of left femur, initial encounter for closed fracture (principal); M25.532 Pain in left wrist; G89.18 Other acute postprocedural pain; Y99.0 Civilian activity done for income or pay; W10.1XXA Fall (on)(from) sidewalk curb, initial encounter; Y92.62 Dock or shipyard as the place of occurrence of the external cause; Y93.01 Activity, walking, marching and hiking; M16.12 Unilateral primary osteoarthritis, left hip; J45.909 Unspecified asthma, uncomplicated; I10 Essential (primary) hypertension
CPT/HCPCS: 01214; 36415; 64450; 71045; 73080; 73110; 73130; 73501; 73502; 76942; 80048; 80053; 83735; 85025; 85027; 86850; 86900; 86901; 93005; 94761; 97110; 97116; 97161; 97165; 97530; 97535; 99285; A9270; C1776; J0690; J1100; J1171; J2250; J2270; J2371; J2405; J2704; J2795; J3010; J3490; J7120

== ENCOUNTER 2025-08-02 10:40 | Outpatient (CLI) | payer BC, SELFPAY | END 2025-08-02 10:41 | disposition home or self-care (01) | LOC: LKVREF 10:41 | PROVIDERS: PCP Physician Assistant Medical; Visit Provider Physician Assistant Surgical | DX: T81.40XA Infection following a procedure, unspecified, initial encounter (principal) | CPT/HCPCS: 87070; 87075; 87205 ==

== ENCOUNTER 2025-08-26 07:12 | Day surgery (SDC) | payer BC, SELFPAY ==
[2025-08-26] VITALS (11 sets, daily range): BP systolic 104–130; BP diastolic 61–79; PULSE 84–96; RESP 14–16; TEMP 36.4–36.6; O2SAT 95–99; BMI 31.1
--- NOTE | 2025-08-26 07:23 | W.PM.H&PU ---
History & Physical Update History & Physical Update H&P Reviewed and patient assessed: No changes noted
[2025-08-26] MEDS: LACTATED RINGERS 1000 ML 1,000 ML 100 ML IV ×2 (08:30→10:35)
[2025-08-26] MEDS: SODIUM CHLORIDE 0.9 % (FLUSH) 10 ML SYRINGE IVF (08:30)
--- NOTE | 2025-08-26 10:10 | P.ORPRC_ITS ---
Procedure Note Date of procedure: 08/26/25 Procedure: PREOPERATIVE DIAGNOSIS: 1. Left hip MATILDE proximal wound dehiscence/reopening (5 mm) without clear purulence POSTOPERATIVE DIAGNOSIS: 1. Left hip MATILDE proximal wound dehiscence/reopening (5 mm) without clear purulence PROCEDURE: 1. Left hip MATILDE wound excisional debridement of skin and subcutaneous fat 2. Left hip MATILDE wound closure (2 linear cm) SURGEON: Ayo Zuleta MD. GARBAGE MAN: Debby Kaba PA-C - Of note, an assistant professor of geography was critical for this case to aid in patient positioning, tissue retraction, limb manipulation/positioning, patient safety, & closure. ANESTHESIA: General anesthetic EBL: 2 mL IMPLANTS: None TOURNIQUET: None COMPLICATIONS: None evident INDICATIONS: The patient is a pleasant 60-year-old female who had a work- related injury on 06/08/2025 falling onto her left side including a left femoral neck fracture and left radial neck fracture. The radial neck is been treated closed. However, the left femoral neck fracture were was worthy of a left MATILDE for fracture. She underwent this procedure on 06/09/2025. In the last 2 weeks she has noticed the wound has reopened, initially just a pinhole size along with some light yellowish colored, slow drainage. Upon my evaluation this was felt to be serous drainage. Initially, we cleaned the wound and applied Dermabond. Unfortunately, the wound persisted and slightly enlarged to approximately 2 mm and then 1 week later 4 mm. Given the persistence and slight enlargement of the wound, it was felt prudent to take her back to the operating room to probed this region to find if there is any deeper abscess or infectious pocket that might be causing this. As well as possibly your reclosed the wound if indicated. FINDINGS: The 5 mm wound had a light yellowish baker color serous drainage that was only present on the bandage. Not actively draining. Upon ellipsing out the small wound, the surrounding tissue appeared very healthy. This was probed and no deeper tract was identified. No purulence was encountered. No foul odor encountered. Thorough irrigation normal saline was performed. This was closed with 3-0 nylon. DESCRIPTION OF PROCEDURE: Following a thorough discussion of risks, benefits, and alternatives consent was obtained and the operative extremity was marked. The patient was brought to the operating room and placed supine on the operating table. 2 g IV Ancef was administered within 1 hour incision preoperatively. Proper time-out was performed identifying proper patient, site, and procedure. The operative extremity was prepped and draped in the appropriate sterile fashion using ChloraPrep. The limb was exsanguinated and the tourniquet inflated. The 5 mm opening was ellipsed out with a 15 blade scalpel. Excisional debridement of skin and subcutaneous fat was performed sharply with the scalpel. The tissue that was excised was palpated and did have some slight firmness to it, but no patricio suture was identified nor a clear abscess. Again probing was performed in all directions and deep and did not have any penetration of the subcutaneous fat any deeper. It certainly did not penetrate through the fascia as it did not even come close to approaching that depth. Thorough irrigation with normal saline was performed (1 L for this small wound). Closure was then performed with 3-0 nylon in vertical mattress fashion to help relieve tension on the skin and reapproximate the wound. Silver impregnated Mepilex dressing was applied and the patient was awoken/transferred to the recovery room in stable condition. PLAN: 1. Weight bear as tolerated operative extremity. 2. Range of motion of the operative extremity/digits as tolerated. 3. Ibuprofen, acetaminophen and/or oxycodone as needed for pain. 4. Follow up with PA visit in 12-16 days for wound check and suture removal.
--- NOTE | 2025-08-26 10:20 | P.ANES_ITS ---
Anesthesia Charges Start Date/Time Anesthesia Start Date: 08/26/25 Anesthesia Start Time: 09:35 Stop Date/Time Anesthesia Stop Date: 08/26/25 Anesthesia Stop Time: 10:16 Coding CPT Codes CPT Codes: ANESTH SKIN EXT/PER/ATRUNK - 32521 ([id number]) P2 - PATIENT W/MILD SYST DISEASE, QX - TIE TAPE MACHINE OPERATOR SVC W/ MD MED DIRECTION, QK - SLATE MIXER 2-4 CNCRNT ANES PROC
--- NOTE | 2025-08-26 10:20 | W.ANESCHARGE ---
Anesthesia Charges Start Date/Time Anesthesia Start Date: 08/26/25 Anesthesia Start Time: 09:35 Stop Date/Time Anesthesia Stop Date: 08/26/25 Anesthesia Stop Time: 10:16 Coding CPT Codes CPT Codes: ANESTH SKIN EXT/PER/ATRUNK - 10339 ([id number]) P2 - PATIENT W/MILD SYST DISEASE, QX - CANDLE MAKING SUPERVISOR SVC W/ MD MED DIRECTION, QK - MANAGER PRODUCE 2-4 CNCRNT ANES PROC
--- NOTE | 2025-08-26 10:28 | P.ANES_ITS ---
Anesthesia Charges Start Date/Time Anesthesia Start Date: 08/26/25 Anesthesia Start Time: 09:35 Stop Date/Time Anesthesia Stop Date: 08/26/25 Anesthesia Stop Time: 10:16 Coding CPT Codes CPT Codes: ANESTH SKIN EXT/PER/ATRUNK - 65431 ([id number]) QK - MAINTENANCE TRUCK DRIVER 2-4 CNCRNT ANES PROC, QX - PETROLEUM REFINING EQUIPMENT OPERATOR SVC W/ MD MED DIRECTION, P2 - PATIENT W/MILD SYST DISEASE
--- NOTE | 2025-08-26 10:28 | W.ANESCHARGE ---
Anesthesia Charges Start Date/Time Anesthesia Start Date: 08/26/25 Anesthesia Start Time: 09:35 Stop Date/Time Anesthesia Stop Date: 08/26/25 Anesthesia Stop Time: 10:16 Coding CPT Codes CPT Codes: ANESTH SKIN EXT/PER/ATRUNK - 99628 ([id number]) QK - FOOT GATHERER 2-4 CNCRNT ANES PROC, QX - COMPUTER INSTALLER SVC W/ MD MED DIRECTION, P2 - PATIENT W/MILD SYST DISEASE
== END 2025-08-26 11:48 | disposition home or self-care (01) ==
PROVIDERS: PCP Physician Assistant Medical; Visit Provider Orthopaedic Surgery Sports Medicine
PROC: (CPT 11042; principal; 2025-08-26 09:30)
DX: T81.31XA Disruption of external operation (surgical) wound, not elsewhere classified, initial encounter (principal)
CPT/HCPCS: 11042; 00400; J0330; J0690; J1100; J2250; J2405; J2704; J3010; J7120